=== PATIENT | female | born 1945 | race Caucasian/White ===

== ENCOUNTER 2017-02-25 07:50 | Inpatient (IN) | payer MEDICARE, MEDICAID ==
[2017-02-25] MEDS ORDERED: Fentanyl 100 MCG/2 ML VIAL ONE (08:02)
[2017-02-25] MEDS ORDERED: EPINEPHrine 1 MG/10 ML Abboject SYRINGE ONE (08:02)
[2017-02-25] MEDS ORDERED: Aspirin 300 MG Suppository ONE (08:18)
--- NOTE | 2017-02-25 08:18 | RAD ---
PORTABLE SUPINE FRONTAL CHEST: Date: 02/25/17 COMPARISON: None. HISTORY: Hypotension, lethargy, bundle branch block. FINDINGS: There is air space disease within the right upper lobe with air bronchograms consistent with partial consolidation of right upper lobe. There is also right perihilar region air space disease as well as mild right basilar air space disease. Supine imaging limits assessment for pneumothorax and pleural f luid. Cardiac silhouette is prominent. Postsurgical clips are present in the left upper quadrant of t he abdomen. IMPRESSION: Air space disease within the right lung, including consolidation of right upper lobe centrally sugges laura infectious pneumonitis or aspiration. POS: [facility]
[2017-02-25 08:29] LABS: #Lymphocytes 0.6 thou/uL (1.20-3.40); #Monocytes 0.4 thou/uL (0.11-0.59); #Neutrophils 4.2 thou/uL (1.40-6.50); %Basophils 0.2 % (0.0-1.0); %Eosinophils 0.8 % (0.0-10.0); %Lymphocytes 11.4 % (21.0-51.0); %Monocytes 8.1 % (0.0-10.0); Hematocrit 35.4 % (36.0-47.0); Red Blood Cell (RBC) Count 3.71 mill/uL (4.20-5.40); White Blood Cell (WBC) Count 5.3 thou/uL (4.8-10.8)
[2017-02-25 08:36] LABS: Prothrombin Time 13.9 SEC (12.0-14.7)
--- NOTE | 2017-02-25 08:39 | CON ---
DATE OF CONSULTATION: 02/25/2017 HISTORY: Ms. Lowe is a 71-year-old white female who does not have any previous cardiac problems, although later she stated she has had heart caths in the past. She felt poorly yesterday and this morning apparently had rigors. She has had some chest discomfort and states that she hurts all over. Upon taking a deep breath, her chest pain becomes much worse. She also has had shortness of breath and nausea, but no vomiting. Here EKG demonstrated left bundle branch block and I was consulted. An old EKG that was available, which shows same left bundle branch block previously. PAST MEDICAL HISTORY: Hypertension. No history of diabetes or hypercholesterolemia. She does have history of panic attacks. She had a heart cath 4 years ago and no significant disease according to patient (in [place], [place]). MEDICATIONS: Unknown at this time. ALLERGIES: None. OPERATION: Abdominal herniorrhaphy. SOCIAL HISTORY: She does not smoke or drink. FAMILY HISTORY: Sister has had myocardial infarctions. REVIEW OF SYSTEMS: Twelve point review of systems is unremarkable except as noted above. PHYSICAL EXAMINATION: VITAL SIGNS: Blood pressure 98/40, pulse of 80. She has received intravenous fluids due to hypotension en route. HEENT: PERRL. NECK: Supple. CHEST: Reveals rhonchi greater on the right. CARDIOVASCULAR: S1 and S2 were distant without any S3, S4 or murmurs. ABDOMEN: Obese, normal bowel sounds. Some epigastric tenderness. EXTREMITIES: Revealed no clubbing, cyanosis or edema. NEUROLOGIC: Grossly intact except the patient is somewhat lethargic. SKIN: Warm and dry. IMAGING: EKG demonstrates normal sinus rhythm with left bundle branch block, similar to previous EKG. Blood work is pending. Chest x-ray reveals right upper lobe infiltrate. IMPRESSION: 1. Probable right upper lobe pneumonia causing shortness of breath, pleuritic chest pain, and rigors. 2. Left bundle branch block, which appears to be old. Heart caths in the past with no significant disease according to the patient. 3. Hypertension. 4. Obesity. 5. History of panic attacks. 6. Obstructive sleep apnea. PLAN: Blood work has been sent, but it is not available at this time. She will need serial cardiac enzymes; however, I do not feel that she needs to go to [facility] acutely at this time. [facility]
[2017-02-25] MEDS ORDERED: cefTRIAXone\\ROCEPHIN 2 GM, Admixture Fee 1 EACH in Sodium Chloride 0.9% 100 ML IVPB SCH (08:45)
[2017-02-25 08:51] LABS: ALT (SGPT) 15 U/L (8-55); AST (SGOT) 18 U/L (5-34); Alkaline Phosphatase 66 U/L (40-150); Anion Gap 8 mmol/L (10-20); BUN (Urea Nitrogen) 14 mg/dL (9.8-20.1); Bilirubin, Total 1.2 mg/dL (0.2-1.2); Calc. Creatinine Clearance 0 mL/min (70-130); Calcium 8.2 mg/dL (7.8-10.44); Carbon Dioxide 23 mmol/L (23-31); Chloride 106 mmol/L (98-107); Estimated GFR-MDRD 74; Globulin 1.9 g/dL (2.4-3.5); Lipase 5 U/L (8-78); Magnesium 1.1 mg/dL (1.6-2.6); Protein, Total 4.7 g/dL (6.0-8.3)
[2017-02-25 08:54] LABS: Bilirubin Negative (Negative); Blood, Urine Negative (Negative); Glucose, Urine (Dipstick) Negative (Negative); Ketone, Urine Negative (Negative); Nitrite Negative (Negative); Protein, Urine (Dipstick) Negative (Neg-Trace)
[2017-02-25 08:56] LABS: Troponin I 0.066 ng/mL (< 0.028)
[2017-02-25] MEDS ORDERED: Azithromycin 500 MG, Admixture Fee 1 EACH in Sodium Chloride 0.9% 250 ML 250 ML IVPB SCH (09:15)
[2017-02-25] MEDS ORDERED: Acetaminophen 500 MG TAB ONE (10:18)
--- NOTE | 2017-02-25 10:46 | RAD ---
PORTABLE SEMIUPRIGHT FRONTAL CHEST RADIOGRAPH: DATE: 02/25/17. TIME: 9:39 a.m. COMPARISON: 02/25/17 at 7:25 a.m. HISTORY: Evaluate chest following central line placement. FINDINGS: There is dense airspace disease in the right upper lobe and right perihilar region. There is interst itial prominence in bilateral perihilar regions as well. There is a right-sided vascular catheter, di stal tip overlying the right atrium. IMPRESSION: Pulmonary vascular congestion and perihilar interstitial prominence with dense airspace disease in th e right upper lobe. Findings suggest infectious pneumonitis/aspiration within the right upper lobe. Superimposed pulmonary edema cannot be excluded. Followup to resolution advised. POS: [facility]
[2017-02-25] MEDS ORDERED: Norepinephrine 8 MG/0.9% NS 0 ML ONE (10:52)
--- NOTE | 2017-02-25 11:15 | CT ---
CONTRAST ENHANCED CTA CHEST: HISTORY: Elevated D-dimer. Sore throat. Cough. Recent fever. TECHNIQUE: 2D and 3D reconstructed images were performed on an independent 3D work station. FINDINGS: Numerous surgical clips are seen in the gastroesophageal junction region and in the left upper quadra nt of the abdomen. Atherosclerotic calcification is seen in the thoracic aorta and stents and calcification are seen in the coronary arteries. Right upper lobe and the bilateral lower lobe air space opacity is seen, compatible with bilateral pn eumonia. No evidence of filling defects seen in the pulmonary arteries to suggest pulmonary emboli. IMPRESSION: Extensive bilateral lower lobe opacities and right upper lobe opacities, compatible with multilobar p neumonia. POS: [facility]
--- NOTE | 2017-02-25 12:06 | HP ---
PRIMARY CARE PHYSICIAN: Anastasiia Nova M.D. REASON FOR ADMISSION: Sepsis, bilateral pneumonia, and hypotension. HISTORY OF PRESENT ILLNESS: A 71-year-old female who presented to the emergency room with a complain t of cough, fever, shortness of breath, and generalized weakness. This patient was having high grade fever last night. The patient was also feeling chills with fever and rigor. Her temperature was about 101 and above as per patient's . Patient was given Tyle nol and anxiety medicine around 4 a.m., but patient continued to feel feverish and chills. After a w hile when patient's noticed her, she was becoming more slow, lethargic and not responding liliana ropriately and that is why he called paramedics. When paramedics came to her home, at that time they checked blood pressure, it was 80/50. They did EKG and patient was found with LBBB. Subsequently, patient was brought to the emergency room for evaluation. In the emergency room, they were worried about new LBBB and that is why Cardiology was consulted, but when we obtained old EKG, it was consistent with old LBBB. Patient was hypotensive after 3 liters o f fluid and that is why she required central line placement. She was hypoxic in the emergency room w ith saturation 85% on room air and 92% with nasal cannula. She was having low grade fever. Her bloo d pressure was improving. She did not require any vasopressor in the emergency room. The patient reports that for about 1 month, she was having cough and allergy symptoms, but last night , her symptoms gotten more worse. She did not have any UTI symptoms. She denies any pleuritic chest pain, but she does have cough productive of yellowish green sputum with tinge amount of blood. She denies any palpitations or syncope. She denies any constipation or diarrhea. She denies any recent sick exposures, recent hospitalization or any antibiotic exposure. In the emergency room, patient was given Rocephin, azithromycin, and 3 liters of IV fluid and subsequ ently she is going to be admitted in [facility]. REVIEW OF SYSTEMS: The following complete review of systems was negative, unless otherwise mentioned in the HPI or below: Constitutional: Weight loss or gain, ability to conduct usual activities. Skin: Rash, itching. Eyes: Double vision, pain. ENT/Mouth: Nose bleeding, neck stiffness, pain, tenderness. Cardiovascular: Palpitations, dyspnea on exertion, orthopnea. Respiratory: Shortness of breath, wheezing, cough, hemoptysis, fever or night sweats. Gastrointestinal: Poor appetite, abdominal pain, heartburn, nausea, vomiting, constipation, or diarr hea. Genitourinary: Urgency, frequency, dysuria, nocturia. Musculoskeletal: Pain, swelling. Neurologic/Psychiatric: Anxiety, depression. Allergy/Immunologic: Skin rash, bleeding tendency. Please see my HPI for pertinent positive and negative. All other review of system reviewed and negat rivas except as mentioned in the HPI. PAST MEDICAL HISTORY: Hypertension, history of zoster, chronic low back pain, osteoporosis, and oste oarthritis. PAST SURGICAL HISTORY: Patient had several hernia repair, gastric sleeve surgery, tubal ligation, an d cholecystectomy. PAST PSYCHIATRIC HISTORY: Anxiety and depression. SOCIAL HISTORY: Patient is and lives at home with the family. No history of tobacco, alcoho l or illicit drug abuse. She is not working. FAMILY HISTORY: One sister diagnosed with coronary artery disease, but no strong family history of c ancer or CVA. EMERGENCY ROOM COURSE: The patient is given Rocephin 2 grams, azithromycin 500 mg, 2 liters of IV fl uid, aspirin 300 mg rectally, fentanyl 25 mcg and IV fluid. ALLERGIES: No known drug allergies. CURRENT HOME MEDICATIONS: Prozac 40 mg p.o. daily, trazodone 150 mg p.o. at bedtime, folic acid 1 mg p.o. daily, sulindac 150 mg twice daily, Xanax 0.5 mg twice daily, hydrochlorothiazide 25 mg p.o. da sandor, Flexeril 5 mg twice daily, clonidine 0.1 mg p.o. b.i.d., acyclovir 400 mg twice daily, Contrave one tablet twice daily, vitamin D3 1000 units p.o. daily, multivitamin 1 tablet p.o. daily, Forteo in jection as needed as directed. PHYSICAL EXAMINATION: VITAL SIGNS: Lowest blood pressure was 80/40 at the scene and subsequently in the emergency room, [facility] blood pressure is 88/54, pulse 94, respiratory rate 22, temperature 98.4, saturation 85% on room air and 94% on 2 liter oxygen, weight 69 kilograms. GENERAL: Patient is currently alert, awake, appears weak, lethargic, slowly responsive. HEAD: Normocephalic, atraumatic. EYES: Pupils round, reactive to light. Extraocular muscle intact. ENT: Oropharynx within normal limits. Moist mucous membranes. No oral lesions. No pharyngeal eryt julius, no exudate. NECK: Supple, no JVD, no thyromegaly, no carotid bruit, no meningeal signs of irritation. LUNGS: Bibasilar rales as well as coarse breath sounds, predominantly on the right side. No wheezin g. No accessory muscles of respiration in use. CARDIAC: S1, S2 regular, tachycardia, no murmur elicited, no gallop, no rub. ABDOMEN: Soft, bowel sounds present, nontender, nondistended. No organomegaly, no mass, no suprapub ic tenderness. BACK: Examination unremarkable, no CVA tenderness. EXTREMITIES: Upper extremity passive movements of all joints are normal. Lower extremities: No karla ma. Good peripheral pulsation. SKIN: No skin rash. HEMATOLOGICAL SYSTEM: No lymphadenopathy. PSYCHIATRIC: Normal affect. IMAGING AND SIGNIFICANT LABORATORY DATA: 1. EKG showing LBBB which is old. Chest x-ray showing pulmonary vascular congestion, cardiomegaly, right-sided infiltration. 2. CT angio based on my review, no evidence of pulmonary embolism, but showing right upper lobe and bibasilar infiltration. 3. CBC: WBC 5.3, hemoglobin 11.2, platelet 218 with left shift. INR 1.1. D-dimer 2.91. 4. BMP: Sodium 134, potassium 3.2, chloride 106, carbon dioxide 23, anion gap 8, BUN 14, creatinine 0.77, glucose 105, calcium 8.2, lactic acid 2.0, magnesium 1.1. 5. LFT: AST 18, ALT 15, alkaline phosphatase 66, albumin 2.8, lipase 5, CK-MB 0.8, troponin I 0.066 , BNP 168.7. Urinalysis normal. ASSESSMENT AND PLAN/IMPRESSION: 1. Sepsis with acute organ dysfunction. The patient has fever at home. Source of infection is pneu monia. She is tachycardic and hypoxic. The patient will be kept on broad spectrum antibiotic therap y with Rocephin and Levaquin. 2. Acute hypoxic respiratory failure. When she arrived to ER, patient was saturating 85% on room ai r, most likely related with pneumonia. We will continue with oxygen to keep saturation above 92%. W e are hoping that with the treatment of pneumonia, she may not need oxygen upon discharge. We will d sergioy titrate her oxygen requirement. 3. Bilateral pneumonia. Patient has bibasilar as well as right upper lobe infiltration and we will check influenzae, urine legionella, and streptococcal pneumoniae antigen test. We will start Rocephi n 2 gram and Levaquin 750 mg IV daily. We will provide DuoNeb q.6 hourly, Solu-Medrol 40 mg IV q.8 h ourly, and Mucinex 600 mg twice daily. Pulmonary group will be consulted in IMCU. 4. Elevated troponin, likely due to demand ischemia. We will do serial cardiac enzymes x3 and rule out acute coronary syndrome. 5. Left bundle branch block, old, already evaluated by Cardiology in the emergency room and based on old EKG, patient has old left bundle branch block. We will obtain echocardiography and will continu e with aspirin 81 mg p.o. daily. 6. Elevated BNP. As patient also has pulmonary vascular congestion on chest x-ray, we will do echoc ardiography to rule out any congestive heart failure. 7. Abnormal electrolytes. The patient has hyponatremia, hypokalemia, and hypomagnesemia. We will r eplace potassium 40 mEq p.o. and magnesium sulfate 24 grams one time dose. 8. Elevated D-dimer. We ruled out pulmonary embolism with CT angiography. 9. Hypotension. We will hold on blood pressure medication. At this point, patient's blood pressure is improving. We will check random cortisol level as patient also has underlying congestion, we gavi l try to avoid fluids to prevent congestion. If needed, we will also consider vasopressor support. 10. Anxiety and depression. We will continue Xanax 0.5 mg b.i.d., Prozac 40 mg p.o. daily and trazo done 150 mg p.o. at bedtime. 11. Chronic low back pain. Continue Flexeril 5 mg 3 times daily p.r.n. 12. Osteoporosis. Patient will resume Forteo injection after discharge. 13. Anemia, normocytic, normochromic. We will continue folic acid and multivitamin therapy while in hospital. 14. History of hypertension, but currently low blood pressure and that is why we will hold on antihy pertensive medication. 15. Deep venous thrombosis prophylaxis, Lovenox 40 mg subcutaneously daily. 16. Gastrointestinal prophylaxis, Pepcid 20 mg p.o. b.i.d. 17. Code status: The patient is FULL CODE. Patient's is surrogate decision maker. Disposition plan based on clinical course. We are expecting patient's stay in hospital more than 2 m idnights. Plan of care discussed with the patient and her at bedside in the emergency room i n detail.
[2017-02-25 12:55] LABS: Troponin I 0.057 ng/mL (< 0.028)
[2017-02-25 13:08] VITALS: BMI 30.4
[2017-02-25] MEDS ORDERED: Acetaminophen 325 MG TAB PO PRN ×2 (13:33→13:34)
[2017-02-25] MEDS ORDERED: Ondansetron ODT 4 MG TAB SL PRN (13:33)
[2017-02-25] MEDS ORDERED: Ondansetron HCl/PF 4 MG/2 ML Vial IVP PRN ×2 (13:33→13:34)
[2017-02-25] MEDS ORDERED: Milk Of Magnesia 30 ML UDCUP PO PRN (13:34)
[2017-02-25] MEDS ORDERED: Diabetic Tussin 200 MG/10 ML UDCUP PO PRN (13:34)
[2017-02-25] MEDS ORDERED: Sodium Chloride 0.65% Nasal 44 ML BOT EA NARE PRN (13:34)
[2017-02-25] MEDS ORDERED: Loperamide HCl 2 MG CAP PO PRN (13:34)
[2017-02-25] MEDS ORDERED: Eucerin (Mineral Oil/Petrolatum,White) 30 gm Jar TOP PRN (13:34)
[2017-02-25] MEDS ORDERED: Artificial Tears 18 DROP/0.9 ML EA EYE PRN (13:34)
[2017-02-25] MEDS ORDERED: Chloraseptic Spray 180 ml Bottle PO PRN (13:34)
[2017-02-25] MEDS ORDERED: Mag-Al 1200 mg/1200 mg/30 ML UDCUP PO PRN (13:34)
[2017-02-25] MEDS ORDERED: Senokot 8.6 MG TAB PO PRN (13:34)
[2017-02-25] MEDS ORDERED: Ondansetron ODT 4 MG TAB PO PRN (13:34)
[2017-02-25] MEDS ORDERED: Magnesium Sulfate 4 GM in Sodium Chloride 0.9% 250 ML 250 ML IVPB SCH (14:00)
[2017-02-25] MEDS ORDERED: Potassium Chloride 20 MEQ TAB PO SCH (14:00)
[2017-02-25] MEDS: Sodium Chloride 0.9% 1,000 ML IV SCH (14:08)
[2017-02-25] MEDS: HYDROcodone/Acetaminophen 5/325 mg Tablet PO PRN ×2 (14:36→21:05)
[2017-02-25 14:38] LABS: LegU Control Bar Appear? YES (CONTROL BAR); LegionellaU Control Bkground? CLEAR/WHITE (CLR/WHITE); Strp pneuU Control Background? CLEAR/WHITE (CLR/WHITE); Strp pneumo Control Bar Appear YES (CONTROL BAR)
[2017-02-25] MEDS: Levofloxacin 500 mg/D5W 750 MG in Premix Bag 1 BAG IVPB SCH (14:39)
[2017-02-25 15:16] LABS: Troponin I 0.039 ng/mL (< 0.028)
[2017-02-25] MEDS: ALPRAZolam 0.5 MG TAB PO PRN (16:15)
[2017-02-25] MEDS: Ketorolac Tromethamine 30 MG/ML VIAL IVP PRN (18:14)
[2017-02-25] MEDS ORDERED: Famotidine 20 MG TAB PO SCH (21:00)
[2017-02-25] MEDS: guaiFENesin ER 600 MG TAB PO SCH (21:06)
[2017-02-25] MEDS: traZODone HCl 150 MG TAB PO PRN (21:08)
[2017-02-26 05:01] LABS: #Basophils 0.1 thou/uL (0.0-0.2); #Lymphocytes 0.3 thou/uL (1.20-3.40); #Monocytes 0.2 thou/uL (0.11-0.59); #Neutrophils 13.6 thou/uL (1.40-6.50); %Basophils 0.4 % (0.0-1.0); %Eosinophils 0.1 % (0.0-10.0); %Lymphocytes 2.1 % (21.0-51.0); %Monocytes 1.2 % (0.0-10.0); Hematocrit 32.7 % (36.0-47.0); Mean Platelet Volume 5.9 fL (7.4-10.4); Red Blood Cell (RBC) Count 3.43 mill/uL (4.20-5.40); White Blood Cell (WBC) Count 14.2 thou/uL (4.8-10.8)
[2017-02-26 05:21] LABS: ALT (SGPT) 16 U/L (8-55); AST (SGOT) 15 U/L (5-34); Alkaline Phosphatase 71 U/L (40-150); Anion Gap 9 mmol/L (10-20); BUN (Urea Nitrogen) 11 mg/dL (9.8-20.1); Bilirubin, Total 0.4 mg/dL (0.2-1.2); Calc. Creatinine Clearance 94 mL/min (70-130); Calcium 8.3 mg/dL (7.8-10.44); Carbon Dioxide 23 mmol/L (23-31); Chloride 106 mmol/L (98-107); Cholesterol 88 mg/dl (< 200 Desired); Estimated GFR-MDRD Greater than 90; Globulin 2.3 g/dL (2.4-3.5); LDL Cholesterol, Calculated 32 mg/dL; Magnesium 2.3 mg/dL (1.6-2.6); Phosphorus 2.7 mg/dL (2.3-4.7); Protein, Total 5.4 g/dL (6.0-8.3)
[2017-02-26] MEDS: guaiFENesin ER 600 MG TAB PO SCH ×2 (08:18→20:04)
[2017-02-26] MEDS: FLUoxetine HCl 20 MG CAP PO SCH (08:18)
[2017-02-26] MEDS: Saccharomyces boulardii 250 MG CAP PO SCH (08:18)
[2017-02-26] MEDS: predniSONE 20 MG TAB PO SCH (08:18)
[2017-02-26] MEDS: Folic Acid 1 MG TAB PO SCH (08:19)
[2017-02-26] MEDS: Multivitamin W/ Minerals 1 TAB PO SCH (08:19)
[2017-02-26] MEDS: Enoxaparin Sodium 40 MG/0.4 ML SYRINGE SC SCH (08:20)
[2017-02-26] MEDS: cefTRIAXone\\ROCEPHIN 2 GM in Sodium Chloride 0.9% 100 ML IVPB SCH (10:02)
[2017-02-26] MEDS: Ketorolac Tromethamine 30 MG/ML VIAL IVP PRN ×2 (10:13→20:08)
--- NOTE | 2017-02-26 12:16 | PDOC.PN ---
- Subjective Encounter Start Date: 02/26/17 Encounter Start Time: 08:00 -: old records requested/rev c/o headache, but overall doing well, has no fever, has cough, bedside Patient seen and examined. No overnight events - Objective Resuscitation Status: Resuscitation Status FULL:Full Resuscitation MAR Reviewed: Yes Vital Signs & Weight: Vital Signs (12 hours) Temp Pulse Resp BP Pulse Ox 02/26/17 12:11 102 H 18 96 02/26/17 09:55 99.4 F 101 H 20 130/60 91 L 02/26/17 08:00 99.4 F 106 H 18 97 02/26/17 07:59 88 19 98 02/26/17 03:00 98.8 F Weight Weight 156 lb 1.396 oz Most Recent Monitor Data Heart Rate from ECG 106 NIBP 132/57 NIBP BP-Mean 88 Respiration from ECG 26 SpO2 96 I&O: 02/25/17 02/26/17 02/27/17 06:59 06:59 06:59 Intake Total 1048 300 Output Total 2875 375 Balance -1827 -75 Result Diagrams: 02/26/17 04:00 02/26/17 04:00 Phys Exam - Physical Examination Constitutional: NAD HEENT: PERRLA, moist MMs, sclera anicteric Neck: no JVD, supple Respiratory: no wheezing, no rhonchi right side rales Cardiovascular: RRR, no significant murmur, no rub Gastrointestinal: soft, non-tender, no distention, positive bowel sounds Musculoskeletal: no edema, pulses present Neurological: non-focal, normal sensation, moves all 4 limbs Lymphatic: no nodes Psychiatric: normal affect, A&O x 3 Skin: no rash, normal turgor Dx/Plan (1) Abnormal blood electrolyte level Code(s): E87.8 - OTH DISORDERS OF ELECTROLYTE AND FLUID BALANCE, NEC Status: Acute (2) Acute respiratory failure with hypoxia Code(s): J96.01 - ACUTE RESPIRATORY FAILURE WITH HYPOXIA Status: Acute (3) Community acquired bacterial pneumonia Code(s): J15.9 - UNSPECIFIED BACTERIAL PNEUMONIA Status: Acute (4) Demand ischemia Code(s): I24.8 - OTHER FORMS OF ACUTE ISCHEMIC HEART DISEASE Status: Acute (5) Sepsis with acute organ dysfunction Code(s): A41.9 - SEPSIS, UNSPECIFIED ORGANISM; R65.20 - SEVERE SEPSIS WITHOUT SEPTIC SHOCK Status: Acute (6) Anemia, normocytic normochromic Code(s): D64.9 - ANEMIA, UNSPECIFIED Status: Chronic (7) Anxiety and depression Code(s): F41.8 - OTHER SPECIFIED ANXIETY DISORDERS Status: Chronic (8) CAD (coronary artery disease) Code(s): I25.10 - ATHSCL HEART DISEASE OF [place] CORONARY ARTERY W/O ANG PCTRS Status: Chronic (9) LBBB (left bundle branch block) Code(s): I44.7 - LEFT BUNDLE-BRANCH BLOCK, UNSPECIFIED Status: Chronic (10) Obesity (BMI 30.0-34.9) Code(s): E66.9 - OBESITY, UNSPECIFIED Status: Chronic (11) Osteoarthritis Code(s): M19.90 - UNSPECIFIED OSTEOARTHRITIS, UNSPECIFIED SITE Status: Chronic (12) Osteoporosis Code(s): M81.0 - AGE-RELATED OSTEOPOROSIS W/O CURRENT PATHOLOGICAL FRACTURE Status: Chronic - Plan cont current plan of care, plan discussed w/ family, continue antibiotics, PT/OT , respiratory therapy * continue rocephin and levaquin * transfer to tele * change solumedrol to pO prednisone * medication reviewed as below * symptomatic treatment. * follow culture * start PT * discussed with * continue selected home meds * control headache with toradol Review of Systems - Review of Systems Constitutional: Weakness, Malaise. negative: Fever, Chills, Sweats, Other ENT: negative: Ear Pain, Ear Discharge, Nose Pain, Nose Discharge, Nose Congestion, Mouth Pain, Mouth Swelling, Throat Pain, Throat Swelling, Other Respiratory: Cough, Shortness of Breath. negative: Dry, Hemoptysis, SOB with Excertion, Pleuritic Pain, Sputum, Wheezing Cardiovascular: negative: Chest Pain, Palpitations, Orthopnea, Paroxysmal Noc. Dyspnea, Edema, Light Headedness, Other Gastrointestinal: negative: Nausea, Vomiting, Abdominal Pain, Diarrhea, Constipation, Melena, Hematochezia, Other Genitourinary: negative: Dysuria, Frequency, Incontinence, Hematuria, Retention , Other Musculoskeletal: negative: Neck Pain, Shoulder Pain, Arm Pain, Back Pain, Hand Pain, Leg Pain, Foot Pain, Other Skin: negative: Rash, Lesions, Ra, Bruising, Other - Medications/Allergies Allergies/Adverse Reactions: Allergies Allergy/AdvReac Type Severity Reaction Status Date / Time No Known Allergies Allergy Unverified 02/25/17 08:33 Medications: Current Medications Acetaminophen (Tylenol) 650 mg PO Q4H PRN PRN Reason: Headache/Fever or Pain Hydrocodone Bitart/Acetaminophen ([place] 5/325) 1 tab PO Q4H PRN PRN Reason: Moderate Pain (4-6) Last Admin: 02/25/17 21:05 Dose: 1 tab Al Hydroxide/Mg Hydroxide (Maalox) 30 ml PO Q6H PRN PRN Reason: Heartburn or Indigestion Albuterol/Ipratropium (Duoneb) 3 ml NEB [id number] [facility] Last Admin: 02/26/17 12:11 Dose: 3 ml Alprazolam (Xanax) 0.5 mg PO BIDPRN PRN PRN Reason: Anxiety Last Admin: 02/25/17 16:15 Dose: 0.5 mg Aspirin (Aspirin Chewable) 81 mg PO DAILY [facility] Last Admin: 02/26/17 08:18 Dose: 81 mg Cholecalciferol (Vitamin D3) 1,000 units PO DAILY [facility] Last Admin: 02/26/17 08:18 Dose: 1,000 units Cyclobenzaprine HCl (Flexeril) 5 mg PO TID PRN PRN Reason: Muscle Spasm Enoxaparin Sodium (Lovenox) 40 mg SC 0900 [facility] Last Admin: 02/26/17 08:20 Dose: 40 mg Fluoxetine HCl (Prozac) 40 mg PO DAILY [facility] Last Admin: 02/26/17 08:18 Dose: 40 mg Folic Acid (Folvite) 1 mg PO DAILY [facility] Last Admin: 02/26/17 08:19 Dose: 1 mg Guaifenesin (Mucinex) 600 mg PO Q12HR [facility] Last Admin: 02/26/17 08:18 Dose: 600 mg Sodium Chloride (Normal Saline 0.9%) 1,000 mls @ 0 mls/hr IV .Q0M [facility] PRN Reason: KVO Last Admin: 02/25/17 14:08 Dose: 1,000 mls Ceftriaxone Sodium 2 gm/ (Sodium Chloride) 100 mls @ 200 mls/hr IVPB DAILY [facility] Last Admin: 02/26/17 10:02 Dose: 100 mls Levofloxacin 750 mg/ Device 150 mls @ 100 mls/hr IVPB 1400 [facility] Last Admin: 02/25/17 14:39 Dose: 150 mls Iron/Minerals/Multivitamins (Theragran M) 1 tab PO DAILY [facility] Last Admin: 02/26/17 08:19 Dose: 1 tab Ketorolac Tromethamine (Toradol) 15 mg IVP Q6H PRN PRN Reason: Moderate Pain (4-6) Stop: 03/02/17 18:07 Last Admin: 02/26/17 10:13 Dose: 15 mg Loperamide HCl (Imodium) 2 mg PO PRN PRN PRN Reason: Diarrhea/Loose Stools Loratadine (Claritin) 10 mg PO DAILYPRN PRN PRN Reason: Sinus Symptoms Magnesium Hydroxide (Milk Of Magnesium) 30 ml PO DAILYPRN PRN PRN Reason: Constipation Mineral Oil/White Petrolatum (Eucerin Cream) 0 gm TOP BIDPRN PRN PRN Reason: Dry Skin Ondansetron HCl (Zofran Odt) 4 mg PO Q6H PRN PRN Reason: Nausea/Vomiting Ondansetron HCl (Zofran) 4 mg IVP Q6H PRN PRN Reason: Nausea/Vomiting Phenol (Chloraseptic [place] 180 Ml Bot) 0 ml PO PRN PRN PRN Reason: Sore Throat Prednisone (Prednisone) 40 mg PO QA-[facility] Stop: 02/28/17 08:01 Last Admin: 02/26/17 08:18 Dose: 40 mg Saccharomyces Boulardii (Florastor) 250 mg PO DAILY [facility] Last Admin: 02/26/17 08:18 Dose: 250 mg Senna (Senokot) 2 tab PO HSPRN PRN PRN Reason: Constipation Sodium Chloride ([place] Nasal [place] 0.65%) 0 ml EA NARE QIDPRN PRN PRN Reason: Nasal Congestion Trazodone HCl (Desyrel) 150 mg PO HS PRN PRN Reason: Insomnia Last Admin: 02/25/17 21:08 Dose: 150 mg Zolpidem Tartrate (Ambien) 5 mg PO HSPRN PRN PRN Reason: Insomnia
--- NOTE | 2017-02-26 12:33 | CON ---
DATE OF SERVICE: 02/26/2017 SERVICE: Pulmonary Medicine. REASON FOR CONSULTATION: Respiratory failure/ICU patient. HISTORY OF PRESENT ILLNESS: The patient is a 71-year-old white female with past medical history sign ificant for chronic back pain who presents to the hospital with fevers, cough, shortness of breath wi th muscle ache, pain, and headache. This has been going on for the better part of 2-1/2 to 3 days. She presented to the Emergency Department. She was discovered to have a temperature of 101. The pat ient started becoming increasingly lethargic, which prompted the patient's to called EMS serv ices. She was brought to the Emergency Department and her blood pressures were only marginal. EKG w as performed demonstrating a left bundle branch block. She was subsequently tucked in the ICU after being initiated on a couple of antibiotics. Since being here, she started to feel much improved. He r headache has resolved, and her myalgia has also improved. Denies any current fevers, chills, nause a, or vomiting. She is tolerating some small amounts of p.o. PAST MEDICAL HISTORY: 1. Hypertension. 2. Osteoporosis. 3. Osteoarthritis. 4. Chronic low back pain. PAST SURGICAL HISTORY: 1. Hernia repair, multiple. 2. Gastric sleeve surgery. 3. Tubal ligation. 4. Cholecystectomy. SOCIAL HISTORY: The patient is and lives at home with her . She has no history of al cohol, tobacco, or illicit drug use. She has no exposure to chemicals, asbestos, or tuberculosis. FAMILY HISTORY: Noncontributory. ALLERGIES: No known drug allergies. MEDICATIONS: List of her inpatient medications were reviewed. Multiple updates were made at this ti pa. REVIEW OF SYSTEMS: General, head, ears, eyes, nose, throat, cardiovascular, respiratory, GI, , mus culoskeletal, neurologic and skin is negative except as mentioned in the HPI. PHYSICAL EXAMINATION: VITAL SIGNS: Afebrile, pulse 83, blood pressure 116/64, respirations 27, saturation 95% on 2 liters nasal cannula. HEENT: Normocephalic, atraumatic. Sclerae are white, conjunctivae pink. Oral mucosa moist without lesions. LUNGS: Excellent air entry. There is a slightly prolonged expiratory phase. Rhonchi are extensive throughout bilateral lung perry. No wheezing or crackles are appreciated. HEART: Normal rate, regular. ABDOMEN: Soft, nontender, nondistended. Bowel sounds are positive. MUSCULOSKELETAL: No cyanosis or clubbing. No pitting in the bilateral lower extremities. NEUROLOGIC: Grossly nonfocal. LABORATORY DATA: WBC 14.2, hemoglobin 10.4, platelets 225,000. INR 1.1. Troponin is stable at 0.05 7, BNP 168. Lactate is negative x1. Cortisol level falls within the normal limits. Potassium 3.2. Basic metabolic profile and liver function studies are otherwise unremarkable. Magnesium 1.1. Urin alysis is unremarkable. Strep and legionella urine antigens are unremarkable. Influenza A and B are negative. IMAGIN. CT of the chest demonstrates multiple areas of consolidated lung including the right upper lobe, and bibasilar dependent regions in the lower lobes. This could be associated with severe aspiration related disease. 2. Echocardiogram demonstrates a normal ejection fraction with a mildly dilated left atrium, and faizan ral regurgitation, and tricuspid regurgitation. ASSESSMENT: 1. Severe sepsis. 2. Community-acquired pneumonia. 3. Non-ST elevation myocardial infarction secondary to demand. 4. Hypokalemia. PLAN: We will continue the patient on community-acquired coverage. At this point, she had stabilize d to the point where safe for her to transition out of the ICU to the regular telemetry floor. [facility] will continue to follow for the time being.
[2017-02-26] MEDS: Sodium Chloride 0.9% 1,000 ML IV SCH (14:10)
[2017-02-26] MEDS: Levofloxacin 500 mg/D5W 750 MG in Premix Bag 1 BAG IVPB SCH ×2 (14:10→16:20)
[2017-02-26] MEDS: Loratadine 10 MG TAB PO PRN (20:22)
[2017-02-26] MEDS: traZODone HCl 150 MG TAB PO PRN (20:22)
[2017-02-26] MEDS: HYDROcodone/Acetaminophen 5/325 mg Tablet PO PRN (22:40)
[2017-02-26] MEDS: Cyclobenzaprine 10 MG TAB PO PRN (22:42)
[2017-02-27] MEDS: Ketorolac Tromethamine 30 MG/ML VIAL IVP PRN ×3 (03:21→19:25)
[2017-02-27] MEDS: Cyclobenzaprine 10 MG TAB PO PRN ×2 (06:39→19:28)
[2017-02-27] MEDS: HYDROcodone/Acetaminophen 5/325 mg Tablet PO PRN ×3 (06:40→21:20)
[2017-02-27 08:15] LABS: #Monocytes 0.2 thou/uL (0.11-0.59); #Neutrophils 14.5 thou/uL (1.40-6.50); %Basophils 0.2 % (0.0-1.0); %Eosinophils 0.1 % (0.0-10.0); %Lymphocytes 6.2 % (21.0-51.0); %Monocytes 1.1 % (0.0-10.0); Mean Platelet Volume 5.7 fL (7.4-10.4); Red Blood Cell (RBC) Count 3.48 mill/uL (4.20-5.40); White Blood Cell (WBC) Count 15.7 thou/uL (4.8-10.8)
[2017-02-27 08:37] LABS: ALT (SGPT) 13 U/L (8-55); AST (SGOT) 11 U/L (5-34); Alkaline Phosphatase 72 U/L (40-150); Anion Gap 9 mmol/L (10-20); BUN (Urea Nitrogen) 10 mg/dL (9.8-20.1); Bilirubin, Total 0.4 mg/dL (0.2-1.2); Calc. Creatinine Clearance 96 mL/min (70-130); Calcium 8.7 mg/dL (7.8-10.44); Carbon Dioxide 24 mmol/L (23-31); Chloride 106 mmol/L (98-107); Estimated GFR-MDRD Greater than 90; Globulin 2.6 g/dL (2.4-3.5); Protein, Total 5.7 g/dL (6.0-8.3)
[2017-02-27] MEDS: ALPRAZolam 0.5 MG TAB PO PRN ×2 (09:24→14:41)
[2017-02-27] MEDS: Folic Acid 1 MG TAB PO SCH (09:25)
[2017-02-27] MEDS: Multivitamin W/ Minerals 1 TAB PO SCH (09:25)
[2017-02-27] MEDS: FLUoxetine HCl 20 MG CAP PO SCH (09:25)
[2017-02-27] MEDS: guaiFENesin ER 600 MG TAB PO SCH ×2 (09:26→19:28)
[2017-02-27] MEDS: predniSONE 20 MG TAB PO SCH (09:26)
[2017-02-27] MEDS: Saccharomyces boulardii 250 MG CAP PO SCH (09:26)
[2017-02-27] MEDS: cefTRIAXone\\ROCEPHIN 2 GM in Sodium Chloride 0.9% 100 ML IVPB SCH (09:27)
[2017-02-27] MEDS: Enoxaparin Sodium 40 MG/0.4 ML SYRINGE SC SCH (09:54)
--- NOTE | 2017-02-27 11:15 | PDOC.PN ---
- Subjective Encounter Start Date: 02/27/17 Encounter Start Time: 08:30 pt is very weak, has hypoxia, has cough, bedside - Objective Resuscitation Status: Resuscitation Status FULL:Full Resuscitation MAR Reviewed: Yes Vital Signs & Weight: Vital Signs (12 hours) Temp Pulse Resp BP Pulse Ox 02/27/17 08:52 84 16 94 L 02/27/17 04:00 98.4 F 84 20 119/58 L 91 L 02/27/17 00:00 98.4 F 85 18 137/71 91 L 02/26/17 23:54 83 16 92 L Weight Weight 156 lb 1.396 oz Most Recent Monitor Data Heart Rate from ECG 106 NIBP 132/57 NIBP BP-Mean 88 Respiration from ECG 26 SpO2 96 I&O: 02/26/17 02/27/17 02/28/17 06:59 06:59 06:59 Intake Total 1048 880 Output Total 6222 3315 Balance -8791 -5116 Result Diagrams: 02/27/17 08:06 02/27/17 08:06 EKG Reviewed by me: Yes Phys Exam - Physical Examination Constitutional: NAD HEENT: PERRLA, moist MMs, sclera anicteric Neck: no JVD, supple Respiratory: no wheezing, no rhonchi few scattered rales Cardiovascular: RRR, no significant murmur, no rub Gastrointestinal: soft, non-tender, no distention, positive bowel sounds Musculoskeletal: no edema, pulses present Neurological: non-focal, normal sensation Lymphatic: no nodes Psychiatric: normal affect, A&O x 3 Skin: no rash, normal turgor Dx/Plan (1) Abnormal blood electrolyte level Code(s): E87.8 - OTH DISORDERS OF ELECTROLYTE AND FLUID BALANCE, NEC Status: Acute (2) Acute respiratory failure with hypoxia Code(s): J96.01 - ACUTE RESPIRATORY FAILURE WITH HYPOXIA Status: Acute (3) Community acquired bacterial pneumonia Code(s): J15.9 - UNSPECIFIED BACTERIAL PNEUMONIA Status: Acute (4) Demand ischemia Code(s): I24.8 - OTHER FORMS OF ACUTE ISCHEMIC HEART DISEASE Status: Acute (5) Sepsis with acute organ dysfunction Code(s): A41.9 - SEPSIS, UNSPECIFIED ORGANISM; R65.20 - SEVERE SEPSIS WITHOUT SEPTIC SHOCK Status: Acute (6) Anemia, normocytic normochromic Code(s): D64.9 - ANEMIA, UNSPECIFIED Status: Chronic (7) Anxiety and depression Code(s): F41.8 - OTHER SPECIFIED ANXIETY DISORDERS Status: Chronic (8) CAD (coronary artery disease) Code(s): I25.10 - ATHSCL HEART DISEASE OF [place] CORONARY ARTERY W/O ANG PCTRS Status: Chronic (9) LBBB (left bundle branch block) Code(s): I44.7 - LEFT BUNDLE-BRANCH BLOCK, UNSPECIFIED Status: Chronic (10) Obesity (BMI 30.0-34.9) Code(s): E66.9 - OBESITY, UNSPECIFIED Status: Chronic (11) Osteoarthritis Code(s): M19.90 - UNSPECIFIED OSTEOARTHRITIS, UNSPECIFIED SITE Status: Chronic (12) Osteoporosis Code(s): M81.0 - AGE-RELATED OSTEOPOROSIS W/O CURRENT PATHOLOGICAL FRACTURE Status: Chronic - Plan cont current plan of care, plan discussed w/ family, continue antibiotics, PT/OT , respiratory therapy * continue rocephin and levaquin * will repeat labs and chest xray * gradually wean off oxygen as tolerated * still not ready for discharge * medication reviewed as below * symptomatic treatment * discussed with . Review of Systems - Review of Systems Constitutional: negative: Fever, Chills, Sweats, Weakness, Malaise, Other ENT: negative: Ear Pain, Ear Discharge, Nose Pain, Nose Discharge, Nose Congestion, Mouth Pain, Mouth Swelling, Throat Pain, Throat Swelling, Other Respiratory: Cough, Shortness of Breath, SOB with Excertion. negative: Dry, Hemoptysis, Pleuritic Pain, Sputum, Wheezing Cardiovascular: negative: Chest Pain, Palpitations, Orthopnea, Paroxysmal Noc. Dyspnea, Edema, Light Headedness, Other Gastrointestinal: negative: Nausea, Vomiting, Abdominal Pain, Diarrhea, Constipation, Melena, Hematochezia, Other Genitourinary: negative: Dysuria, Frequency, Incontinence, Hematuria, Retention , Other Musculoskeletal: negative: Neck Pain, Shoulder Pain, Arm Pain, Back Pain, Hand Pain, Leg Pain, Foot Pain, Other - Medications/Allergies Allergies/Adverse Reactions: Allergies Allergy/AdvReac Type Severity Reaction Status Date / Time No Known Allergies Allergy Unverified 02/25/17 08:33 Medications: Current Medications Acetaminophen (Tylenol) 650 mg PO Q4H PRN PRN Reason: Headache/Fever or Pain Last Admin: 12/05/17 20:04 Dose: 650 mg Hydrocodone Bitart/Acetaminophen ([place] 5/325) 1 tab PO Q4H PRN PRN Reason: Moderate Pain (4-6) Last Admin: 02/27/17 06:40 Dose: 1 tab Al Hydroxide/Mg Hydroxide (Maalox) 30 ml PO Q6H PRN PRN Reason: Heartburn or Indigestion Albuterol/Ipratropium (Duoneb) 3 ml NEB [id number] [facility] Last Admin: 02/27/17 08:52 Dose: 3 ml Alprazolam (Xanax) 0.5 mg PO BIDPRN PRN PRN Reason: Anxiety Last Admin: 02/27/17 09:24 Dose: 0.5 mg Aspirin (Aspirin Chewable) 81 mg PO DAILY [facility] Last Admin: 02/27/17 09:25 Dose: 81 mg Cholecalciferol (Vitamin D3) 1,000 units PO DAILY [facility] Last Admin: 02/27/17 09:26 Dose: 1,000 units Cyclobenzaprine HCl (Flexeril) 5 mg PO TID PRN PRN Reason: Muscle Spasm Last Admin: 02/27/17 06:39 Dose: 5 mg Enoxaparin Sodium (Lovenox) 40 mg SC 0900 [facility] Last Admin: 02/27/17 09:54 Dose: 40 mg Fluoxetine HCl (Prozac) 40 mg PO DAILY [facility] Last Admin: 02/27/17 09:25 Dose: 40 mg Folic Acid (Folvite) 1 mg PO DAILY [facility] Last Admin: 02/27/17 09:25 Dose: 1 mg Guaifenesin (Mucinex) 600 mg PO Q12HR [facility] Last Admin: 02/27/17 09:26 Dose: 600 mg Sodium Chloride (Normal Saline 0.9%) 1,000 mls @ 0 mls/hr IV .Q0M MAURICIO PRN Reason: KVO Last Admin: 02/26/17 14:10 Dose: 1,000 mls Ceftriaxone Sodium 2 gm/ (Sodium Chloride) 100 mls @ 200 mls/hr IVPB DAILY [facility] Last Admin: 02/27/17 09:27 Dose: 100 mls Levofloxacin 750 mg/ Device 150 mls @ 100 mls/hr IVPB 1700 [facility] Last Admin: 02/26/17 16:21 Dose: 150 mls Iron/Minerals/Multivitamins (Theragran M) 1 tab PO DAILY [facility] Last Admin: 02/27/17 09:25 Dose: 1 tab Ketorolac Tromethamine (Toradol) 15 mg IVP Q6H PRN PRN Reason: Moderate Pain (4-6) Stop: 03/02/17 18:07 Last Admin: 02/27/17 09:56 Dose: 15 mg Loperamide HCl (Imodium) 2 mg PO PRN PRN PRN Reason: Diarrhea/Loose Stools Loratadine (Claritin) 10 mg PO DAILYPRN PRN PRN Reason: Sinus Symptoms Last Admin: 02/26/17 20:22 Dose: 10 mg Magnesium Hydroxide (Milk Of Magnesium) 30 ml PO DAILYPRN PRN PRN Reason: Constipation Mineral Oil/White Petrolatum (Eucerin Cream) 0 gm TOP BIDPRN PRN PRN Reason: Dry Skin Ondansetron HCl (Zofran Odt) 4 mg PO Q6H PRN PRN Reason: Nausea/Vomiting Ondansetron HCl (Zofran) 4 mg IVP Q6H PRN PRN Reason: Nausea/Vomiting Phenol (Chloraseptic [place] 180 Ml Bot) 0 ml PO PRN PRN PRN Reason: Sore Throat Prednisone (Prednisone) 40 mg PO QA-[facility] Stop: 02/28/17 08:01 Last Admin: 02/27/17 09:26 Dose: 40 mg Saccharomyces Boulardii (Florastor) 250 mg PO DAILY [facility] Last Admin: 02/27/17 09:26 Dose: 250 mg Senna (Senokot) 2 tab PO HSPRN PRN PRN Reason: Constipation Sodium Chloride ([place] Nasal [place] 0.65%) 0 ml EA NARE QIDPRN PRN PRN Reason: Nasal Congestion Trazodone HCl (Desyrel) 150 mg PO HS PRN PRN Reason: Insomnia Last Admin: 02/26/17 20:22 Dose: 150 mg Zolpidem Tartrate (Ambien) 5 mg PO HSPRN PRN PRN Reason: Insomnia
[2017-02-27] MEDS ORDERED: Sodium Chloride 0.9% 10 ML ONE (19:20)
[2017-02-27] MEDS: Zolpidem Tartrate 5 MG TAB PO PRN (21:22)
--- NOTE | 2017-02-27 21:38 | PRG ---
DATE OF SERVICE: 02/27/2017 SERVICE: Pulmonary Medicine. INTERVAL HISTORY: The patient is doing really quite well from a respiratory standpoint. She has bee n weaned down to 1 liter nasal cannula. She has no complaints of nausea or vomiting. Her cough is c learing. She no longer has productive sputum. PHYSICAL EXAMINATION: VITAL SIGNS: Afebrile with T-max of 99.2, pulse 88, blood pressure 148/70, respirations 18 and satur ation 94% on 1 liter nasal cannula. GENERAL: The patient is awake and alert in no apparent distress. LUNGS: Decent air entry. There is no prolonged expiratory phase. Rhonchi are present, but clear wi th cough. HEART: Normal rate and regular. ABDOMEN: Soft, nontender and nondistended. Bowel sounds are positive. MUSCULOSKELETAL: No cyanosis or clubbing. There is trace pitting in the bilateral lower extremities . NEUROLOGIC: Grossly nonfocal. LABORATORY DATA: WBC 15.7, hemoglobin 10.7 and platelets 237,000. Neutrophil count is dropping to 9 2%. INR 1.1. Basic metabolic profile and liver function studies are essentially unremarkable. Urin alysis is unremarkable. Urine for Strep legionella is negative. Blood cultures x2, urine culture, I nfluenza A and B are negative. ASSESSMENT: 1. Severe sepsis. 2. Community-acquired pneumonia. 3. Non-ST elevation myocardial infarction, secondary to demand. 4. Hypokalemia, resolved. PLAN: We will continue antibiotics, and nebulized medications. The patient will require 7 days of a ntibiotics. Assuming her white blood cell count is coming down and blood cultures remained negative. If she is on room air tomorrow, she will be stable for transition out of the hospital. Pulmonary C ritical Care will continue to follow while she remains in house for the time being.
[2017-02-28] MEDS ORDERED: Sodium Chloride 0.9% 10 ML ONE ×2 (02:34→20:07)
[2017-02-28] MEDS: Ketorolac Tromethamine 30 MG/ML VIAL IVP PRN ×2 (02:37→11:34)
[2017-02-28 06:00] LABS: #Eosinphils 0.1 thou/uL (0.0-0.7); #Lymphocytes 1.1 thou/uL (1.20-3.40); #Monocytes 0.2 thou/uL (0.11-0.59); #Neutrophils 12.2 thou/uL (1.40-6.50); %Eosinophils 0.4 % (0.0-10.0); %Lymphocytes 7.8 % (21.0-51.0); %Monocytes 1.8 % (0.0-10.0); Hematocrit 30.2 % (36.0-47.0); Mean Platelet Volume 5.9 fL (7.4-10.4); Red Blood Cell (RBC) Count 3.17 mill/uL (4.20-5.40); White Blood Cell (WBC) Count 13.5 thou/uL (4.8-10.8)
[2017-02-28 06:22] LABS: Anion Gap 10 mmol/L (10-20); BUN (Urea Nitrogen) 10 mg/dL (9.8-20.1); Calc. Creatinine Clearance 108 mL/min (70-130); Calcium 8.4 mg/dL (7.8-10.44); Carbon Dioxide 22 mmol/L (23-31); Chloride 105 mmol/L (98-107); Estimated GFR-MDRD Greater than 90
--- NOTE | 2017-02-28 09:57 | RAD ---
FRONTAL AND LATERAL IMAGING OF THE CHEST: Date: 02/28/17 COMPARISON: 02/25/17. HISTORY: Re-evaluate pneumonia, respiratory distress. FINDINGS: There is extensive right perihilar and right upper lobe interstitial and alveolar opacity. This opaci ty has slightly improved since the 02/25/17 exam. Stable right-sided vascular catheter. No pneumothorax seen. Extensive postoperative clips and suture lines noted in upper abdomen. There is focal opacity in the medial left lung base which suggests infiltrate or volume loss, not significant ly changed. IMPRESSION: Stable left basilar and right upper lobe pulmonary parenchymal opacity, suggesting multifocal infecti ous pneumonitis. Follow-up to resolution advised. POS: L[facility]
[2017-02-28] MEDS: predniSONE 20 MG TAB PO SCH (10:08)
[2017-02-28] MEDS: FLUoxetine HCl 20 MG CAP PO SCH (10:09)
[2017-02-28] MEDS: guaiFENesin ER 600 MG TAB PO SCH ×2 (10:09→20:08)
[2017-02-28] MEDS: Folic Acid 1 MG TAB PO SCH (10:09)
[2017-02-28] MEDS: Enoxaparin Sodium 40 MG/0.4 ML SYRINGE SC SCH (10:10)
[2017-02-28] MEDS: Saccharomyces boulardii 250 MG CAP PO SCH (10:10)
[2017-02-28] MEDS: Multivitamin W/ Minerals 1 TAB PO SCH (10:10)
[2017-02-28] MEDS: cefTRIAXone\\ROCEPHIN 2 GM in Sodium Chloride 0.9% 100 ML IVPB SCH (10:20)
[2017-02-28] MEDS: HYDROcodone/Acetaminophen 5/325 mg Tablet PO PRN ×2 (10:21→21:35)
[2017-02-28] MEDS: Cyclobenzaprine 10 MG TAB PO PRN ×2 (10:21→20:07)
--- NOTE | 2017-02-28 11:14 | PDOC.PN ---
- Subjective Encounter Start Date: 02/28/17 Encounter Start Time: 08:00 pt still weak, has cough, dyspnea, no fever Patient seen and examined. No overnight events - Objective Resuscitation Status: Resuscitation Status FULL:Full Resuscitation MAR Reviewed: Yes Vital Signs & Weight: Vital Signs (12 hours) Temp Pulse Resp BP Pulse Ox 02/28/17 09:59 98.7 F 96 20 153/82 H 92 L 02/28/17 08:14 110 H 18 02/28/17 04:00 98.8 F 94 16 139/65 93 L 02/28/17 01:21 90 16 94 L 02/28/17 01:20 94 L 02/28/17 00:00 97.9 F 75 24 H 138/65 93 L Weight Weight 156 lb 1.396 oz Most Recent Monitor Data Heart Rate from ECG 106 NIBP 132/57 NIBP BP-Mean 88 Respiration from ECG 26 SpO2 96 I&O: 02/27/17 02/28/17 03/01/17 06:59 06:59 06:59 Intake Total 880 1750 Output Total 2545 6895 Balance -1595 -925 Result Diagrams: 02/28/17 05:16 02/28/17 05:16 Radiology Reviewed by me: Yes (chest xray) EKG Reviewed by me: Yes (nsr) Phys Exam - Physical Examination Constitutional: NAD HEENT: PERRLA, moist MMs, sclera anicteric Neck: no JVD, supple Respiratory: no wheezing, no rhonchi right side and bibasilar rales+ Cardiovascular: RRR, no significant murmur, no rub Gastrointestinal: soft, non-tender, no distention, positive bowel sounds Musculoskeletal: no edema, pulses present Neurological: non-focal, normal sensation Lymphatic: no nodes Psychiatric: normal affect, A&O x 3 Skin: no rash, normal turgor Dx/Plan (1) Abnormal blood electrolyte level Code(s): E87.8 - OTH DISORDERS OF ELECTROLYTE AND FLUID BALANCE, NEC Status: Acute (2) Acute respiratory failure with hypoxia Code(s): J96.01 - ACUTE RESPIRATORY FAILURE WITH HYPOXIA Status: Acute (3) Community acquired bacterial pneumonia Code(s): J15.9 - UNSPECIFIED BACTERIAL PNEUMONIA Status: Acute (4) Demand ischemia Code(s): I24.8 - OTHER FORMS OF ACUTE ISCHEMIC HEART DISEASE Status: Acute (5) Sepsis with acute organ dysfunction Code(s): A41.9 - SEPSIS, UNSPECIFIED ORGANISM; R65.20 - SEVERE SEPSIS WITHOUT SEPTIC SHOCK Status: Acute (6) Anemia, normocytic normochromic Code(s): D64.9 - ANEMIA, UNSPECIFIED Status: Chronic (7) Anxiety and depression Code(s): F41.8 - OTHER SPECIFIED ANXIETY DISORDERS Status: Chronic (8) CAD (coronary artery disease) Code(s): I25.10 - ATHSCL HEART DISEASE OF [place] CORONARY ARTERY W/O ANG PCTRS Status: Chronic (9) LBBB (left bundle branch block) Code(s): I44.7 - LEFT BUNDLE-BRANCH BLOCK, UNSPECIFIED Status: Chronic (10) Obesity (BMI 30.0-34.9) Code(s): E66.9 - OBESITY, UNSPECIFIED Status: Chronic (11) Osteoarthritis Code(s): M19.90 - UNSPECIFIED OSTEOARTHRITIS, UNSPECIFIED SITE Status: Chronic (12) Osteoporosis Code(s): M81.0 - AGE-RELATED OSTEOPOROSIS W/O CURRENT PATHOLOGICAL FRACTURE Status: Chronic - Plan cont current plan of care, plan discussed w/ family, continue antibiotics, PT/OT , respiratory therapy, DVT proph w/lovenox * continue rocephin and levaquin * today will see if she still needs oxygen * medication reviewed as below * symptomatic treatment * continue PT * not ready for discharge * may need rehab?. Review of Systems - Review of Systems Constitutional: Weakness. negative: Fever, Chills, Sweats, Malaise, Other Respiratory: Cough, SOB with Excertion. negative: Dry, Shortness of Breath, Hemoptysis, Pleuritic Pain, Sputum, Wheezing Cardiovascular: negative: Chest Pain, Palpitations, Orthopnea, Paroxysmal Noc. Dyspnea, Edema, Light Headedness, Other Gastrointestinal: negative: Nausea, Vomiting, Abdominal Pain, Diarrhea, Constipation, Melena, Hematochezia, Other Genitourinary: negative: Dysuria, Frequency, Incontinence, Hematuria, Retention , Other Musculoskeletal: negative: Neck Pain, Shoulder Pain, Arm Pain, Back Pain, Hand Pain, Leg Pain, Foot Pain, Other Skin: negative: Rash, Lesions, Ra, Bruising, Other - Medications/Allergies Allergies/Adverse Reactions: Allergies Allergy/AdvReac Type Severity Reaction Status Date / Time No Known Allergies Allergy Unverified 02/25/17 08:33 Medications: Current Medications Acetaminophen (Tylenol) 650 mg PO Q4H PRN PRN Reason: Headache/Fever or Pain Last Admin: 02/26/17 20:04 Dose: 650 mg Hydrocodone Bitart/Acetaminophen ([place] 5/325) 1 tab PO Q4H PRN PRN Reason: Moderate Pain (4-6) Last Admin: 02/28/17 10:21 Dose: 1 tab Al Hydroxide/Mg Hydroxide (Maalox) 30 ml PO Q6H PRN PRN Reason: Heartburn or Indigestion Albuterol/Ipratropium (Duoneb) 3 ml NEB [id number] [facility] Last Admin: 02/28/17 08:14 Dose: 3 ml Alprazolam (Xanax) 0.5 mg PO BIDPRN PRN PRN Reason: Anxiety Last Admin: 02/27/17 14:41 Dose: 0.5 mg Aspirin (Aspirin Chewable) 81 mg PO DAILY [facility] Last Admin: 02/28/17 10:08 Dose: 81 mg Cholecalciferol (Vitamin D3) 1,000 units PO DAILY [facility] Last Admin: 02/28/17 10:09 Dose: 1,000 units Cyclobenzaprine HCl (Flexeril) 5 mg PO TID PRN PRN Reason: Muscle Spasm Last Admin: 02/28/17 10:21 Dose: 5 mg Enoxaparin Sodium (Lovenox) 40 mg SC 0900 [facility] Last Admin: 02/28/17 10:10 Dose: 40 mg Fluoxetine HCl (Prozac) 40 mg PO DAILY [facility] Last Admin: 02/28/17 10:09 Dose: 40 mg Folic Acid (Folvite) 1 mg PO DAILY [facility] Last Admin: 02/28/17 10:09 Dose: 1 mg Guaifenesin (Mucinex) 600 mg PO Q12HR [facility] Last Admin: 02/28/17 10:09 Dose: 600 mg Sodium Chloride (Normal Saline 0.9%) 1,000 mls @ 0 mls/hr IV .Q0M MAURICIO PRN Reason: KVO Last Admin: 02/26/17 14:10 Dose: 1,000 mls Ceftriaxone Sodium 2 gm/ (Sodium Chloride) 100 mls @ 200 mls/hr IVPB DAILY [facility] Last Admin: 02/28/17 10:20 Dose: 100 mls Levofloxacin 750 mg/ Device 150 mls @ 100 mls/hr IVPB 1700 [facility] Last Admin: 02/27/17 17:46 Dose: 150 mls Iron/Minerals/Multivitamins (Theragran M) 1 tab PO DAILY [facility] Last Admin: 02/28/17 10:10 Dose: 1 tab Ketorolac Tromethamine (Toradol) 15 mg IVP Q6H PRN PRN Reason: Moderate Pain (4-6) Stop: 03/02/17 18:07 Last Admin: 02/28/17 02:37 Dose: 15 mg Loperamide HCl (Imodium) 2 mg PO PRN PRN PRN Reason: Diarrhea/Loose Stools Loratadine (Claritin) 10 mg PO DAILYPRN PRN PRN Reason: Sinus Symptoms Last Admin: 02/26/17 20:22 Dose: 10 mg Magnesium Hydroxide (Milk Of Magnesium) 30 ml PO DAILYPRN PRN PRN Reason: Constipation Mineral Oil/White Petrolatum (Eucerin Cream) 0 gm TOP BIDPRN PRN PRN Reason: Dry Skin Ondansetron HCl (Zofran Odt) 4 mg PO Q6H PRN PRN Reason: Nausea/Vomiting Ondansetron HCl (Zofran) 4 mg IVP Q6H PRN PRN Reason: Nausea/Vomiting Phenol (Chloraseptic [place] 180 Ml Bot) 0 ml PO PRN PRN PRN Reason: Sore Throat Saccharomyces Boulardii (Florastor) 250 mg PO DAILY [facility] Last Admin: 02/28/17 10:10 Dose: 250 mg Senna (Senokot) 2 tab PO HSPRN PRN PRN Reason: Constipation Sodium Chloride ([place] Nasal [place] 0.65%) 0 ml EA NARE QIDPRN PRN PRN Reason: Nasal Congestion Trazodone HCl (Desyrel) 150 mg PO HS PRN PRN Reason: Insomnia Last Admin: 02/26/17 20:22 Dose: 150 mg Zolpidem Tartrate (Ambien) 5 mg PO HSPRN PRN PRN Reason: Insomnia Last Admin: 02/27/17 21:22 Dose: 5 mg
[2017-02-28] MEDS: ALPRAZolam 0.5 MG TAB PO PRN (11:34)
--- NOTE | 2017-02-28 13:33 | PRG ---
DATE OF SERVICE: 02/28/2017 SERVICE: Pulmonary Medicine. INTERVAL HISTORY: The patient is doing fine from a respiratory standpoint. She denies any current f rupal or chills. Last night, she slept fairly well. She feels more fresh this morning and has more energy. Otherwise, there has been no interval change to her condition. PHYSICAL EXAMINATION: VITAL SIGNS: Afebrile, pulse 92, blood pressure 159/82, respirations 22 and saturation 94% on 2 lite rs nasal cannula. GENERAL: The patient is awake and alert, in no apparent distress. LUNGS: Decreased air entry. Rhonchi are present. No prolonged expiratory phase or wheezing is appr eciated. HEART: Normal rate and regular. ABDOMEN: Soft, nontender and nondistended. Bowel sounds are positive. MUSCULOSKELETAL: No cyanosis or clubbing. No pitting in the bilateral lower extremities. NEUROLOGIC: Grossly nonfocal. LABORATORY DATA: WBC 13.5, hemoglobin 9.6 and platelets 225,000. INR 1.1. Basic metabolic profile is unremarkable except for a sodium of 133. IMAGING DATA: Chest x-ray demonstrates stable infiltrates suggestive of multifocal infectious proces s. ASSESSMENT: 1. Severe sepsis. 2. Community-acquired pneumonia. 3. Non-ST elevation myocardial infarction secondary to demand. PLAN: We will continue her antibiotics, steroids and nebulized medications. Antibiotics will be dis continued after 7 days. Steroids can be discontinued after a total duration of 5. From a purely res piratory perspective, she is stable for transition out of the hospital provided, she is set up with karl woodard at that location. This can be reevaluated in the outpatient setting. Lezama catheter and IJ wi ll be discontinued today.
[2017-02-28] MEDS: Cefdinir 300 MG CAP PO SCH (20:08)
[2017-02-28] MEDS: Loratadine 10 MG TAB PO PRN (20:08)
[2017-02-28] MEDS: Zolpidem Tartrate 5 MG TAB PO PRN (21:35)
[2017-03-01] MEDS ORDERED: Sodium Chloride 0.9% 10 ML ONE (02:52)
[2017-03-01] MEDS: Ketorolac Tromethamine 30 MG/ML VIAL IVP PRN ×2 (02:55→11:45)
[2017-03-01] MEDS: Cyclobenzaprine 10 MG TAB PO PRN (06:36)
[2017-03-01] MEDS: HYDROcodone/Acetaminophen 5/325 mg Tablet PO PRN (06:37)
[2017-03-01 06:58] LABS: #Eosinphils 0.1 thou/uL (0.0-0.7); #Lymphocytes 1.6 thou/uL (1.20-3.40); #Monocytes 0.4 thou/uL (0.11-0.59); #Neutrophils 7.2 thou/uL (1.40-6.50); %Basophils 0.2 % (0.0-1.0); %Eosinophils 1.6 % (0.0-10.0); %Lymphocytes 16.9 % (21.0-51.0); %Monocytes 3.9 % (0.0-10.0); Hematocrit 31.9 % (36.0-47.0); Mean Platelet Volume 5.6 fL (7.4-10.4); Red Blood Cell (RBC) Count 3.39 mill/uL (4.20-5.40); White Blood Cell (WBC) Count 9.3 thou/uL (4.8-10.8)
[2017-03-01 07:18] LABS: Anion Gap 10 mmol/L (10-20); BUN (Urea Nitrogen) 10 mg/dL (9.8-20.1); Calc. Creatinine Clearance 106 mL/min (70-130); Calcium 8.9 mg/dL (7.8-10.44); Carbon Dioxide 25 mmol/L (23-31); Chloride 101 mmol/L (98-107); Estimated GFR-MDRD Greater than 90
[2017-03-01] MEDS: Enoxaparin Sodium 40 MG/0.4 ML SYRINGE SC SCH (08:46)
[2017-03-01] MEDS: FLUoxetine HCl 20 MG CAP PO SCH (08:46)
[2017-03-01] MEDS: Cefdinir 300 MG CAP PO SCH (08:46)
[2017-03-01] MEDS: Multivitamin W/ Minerals 1 TAB PO SCH (08:47)
[2017-03-01] MEDS: guaiFENesin ER 600 MG TAB PO SCH (08:47)
[2017-03-01] MEDS: Saccharomyces boulardii 250 MG CAP PO SCH (08:47)
[2017-03-01] MEDS: Folic Acid 1 MG TAB PO SCH (08:47)
[2017-03-01] MEDS ORDERED: Cyanocobalamin 1000 MCG/ML VIAL IM SCH (09:30)
--- NOTE | 2017-03-01 09:56 | PDOC.PN ---
- Subjective Encounter Start Date: 03/01/17 Encounter Start Time: 09:00 Patient seen and examined. No new complaints. No overnight events - Objective Resuscitation Status: Resuscitation Status FULL:Full Resuscitation MAR Reviewed: Yes Vital Signs & Weight: Vital Signs (12 hours) Temp Pulse Resp BP Pulse Ox 03/01/17 08:05 97.9 F 89 20 153/83 H 93 L 03/01/17 07:29 89 18 96 03/01/17 04:00 97.7 F 93 20 123/64 92 L 03/01/17 01:07 94 20 94 L 03/01/17 00:51 95 Weight Weight 156 lb 1.396 oz Most Recent Monitor Data Heart Rate from ECG 106 NIBP 132/57 NIBP BP-Mean 88 Respiration from ECG 26 SpO2 96 I&O: 02/28/17 03/01/17 03/02/17 06:59 06:59 06:59 Intake Total 1750 920 Output Total 2675 4000 Balance -925 -8450 Result Diagrams: 03/01/17 06:41 03/01/17 06:41 EKG Reviewed by me: Yes (nsr) Phys Exam - Physical Examination Constitutional: NAD HEENT: PERRLA, moist MMs, sclera anicteric Neck: no JVD, supple Respiratory: no wheezing, no rales, no rhonchi Cardiovascular: RRR, no significant murmur, no rub Gastrointestinal: soft, non-tender, no distention, positive bowel sounds Musculoskeletal: no edema, pulses present Neurological: non-focal, normal sensation Lymphatic: no nodes Psychiatric: normal affect, A&O x 3 Skin: no rash, normal turgor Dx/Plan (1) Abnormal blood electrolyte level Code(s): E87.8 - OTH DISORDERS OF ELECTROLYTE AND FLUID BALANCE, NEC Status: Acute (2) Acute respiratory failure with hypoxia Code(s): J96.01 - ACUTE RESPIRATORY FAILURE WITH HYPOXIA Status: Acute (3) Community acquired bacterial pneumonia Code(s): J15.9 - UNSPECIFIED BACTERIAL PNEUMONIA Status: Acute (4) Demand ischemia Code(s): I24.8 - OTHER FORMS OF ACUTE ISCHEMIC HEART DISEASE Status: Acute (5) Sepsis with acute organ dysfunction Code(s): A41.9 - SEPSIS, UNSPECIFIED ORGANISM; R65.20 - SEVERE SEPSIS WITHOUT SEPTIC SHOCK Status: Acute (6) Anemia, normocytic normochromic Code(s): D64.9 - ANEMIA, UNSPECIFIED Status: Chronic (7) Anxiety and depression Code(s): F41.8 - OTHER SPECIFIED ANXIETY DISORDERS Status: Chronic (8) CAD (coronary artery disease) Code(s): I25.10 - ATHSCL HEART DISEASE OF [place] CORONARY ARTERY W/O ANG PCTRS Status: Chronic (9) LBBB (left bundle branch block) Code(s): I44.7 - LEFT BUNDLE-BRANCH BLOCK, UNSPECIFIED Status: Chronic (10) Obesity (BMI 30.0-34.9) Code(s): E66.9 - OBESITY, UNSPECIFIED Status: Chronic (11) Osteoarthritis Code(s): M19.90 - UNSPECIFIED OSTEOARTHRITIS, UNSPECIFIED SITE Status: Chronic (12) Osteoporosis Code(s): M81.0 - AGE-RELATED OSTEOPOROSIS W/O CURRENT PATHOLOGICAL FRACTURE Status: Chronic - Plan cont current plan of care, plan discussed w/ family, continue antibiotics * medication reviewed as below * symptomatic treatment * see discharge johnny. Review of Systems - Review of Systems ENT: negative: Ear Pain, Ear Discharge, Nose Pain, Nose Discharge, Nose Congestion, Mouth Pain, Mouth Swelling, Throat Pain, Throat Swelling, Other Respiratory: negative: Cough, Dry, Shortness of Breath, Hemoptysis, SOB with Excertion, Pleuritic Pain, Sputum, Wheezing Cardiovascular: negative: Chest Pain, Palpitations, Orthopnea, Paroxysmal Noc. Dyspnea, Edema, Light Headedness, Other Gastrointestinal: negative: Nausea, Vomiting, Abdominal Pain, Diarrhea, Constipation, Melena, Hematochezia, Other Genitourinary: negative: Dysuria, Frequency, Incontinence, Hematuria, Retention , Other Musculoskeletal: negative: Neck Pain, Shoulder Pain, Arm Pain, Back Pain, Hand Pain, Leg Pain, Foot Pain, Other - Medications/Allergies Allergies/Adverse Reactions: Allergies Allergy/AdvReac Type Severity Reaction Status Date / Time No Known Allergies Allergy Unverified 02/25/17 08:33 Medications: Current Medications Acetaminophen (Tylenol) 650 mg PO Q4H PRN PRN Reason: Headache/Fever or Pain Last Admin: 02/26/17 20:04 Dose: 650 mg Hydrocodone Bitart/Acetaminophen ([place] 5/325) 1 tab PO Q4H PRN PRN Reason: Moderate Pain (4-6) Last Admin: 03/01/17 06:37 Dose: 1 tab Al Hydroxide/Mg Hydroxide (Maalox) 30 ml PO Q6H PRN PRN Reason: Heartburn or Indigestion Albuterol/Ipratropium (Duoneb) 3 ml NEB [id number] [facility] Last Admin: 03/01/17 07:29 Dose: 3 ml Alprazolam (Xanax) 0.5 mg PO BIDPRN PRN PRN Reason: Anxiety Last Admin: 02/28/17 11:34 Dose: 0.5 mg Aspirin (Aspirin Chewable) 81 mg PO DAILY [facility] Last Admin: 03/01/17 08:46 Dose: 81 mg Cefdinir (Omnicef) 300 mg PO BID [facility] Last Admin: 03/01/17 08:46 Dose: 300 mg Cholecalciferol (Vitamin D3) 1,000 units PO DAILY [facility] Last Admin: 03/01/17 08:46 Dose: 1,000 units Cyanocobalamin (Vitamin B-12) 1,000 mcg IM 0930 [facility] Stop: 03/01/17 11:30 Cyclobenzaprine HCl (Flexeril) 5 mg PO TID PRN PRN Reason: Muscle Spasm Last Admin: 03/01/17 06:36 Dose: 5 mg Enoxaparin Sodium (Lovenox) 40 mg SC 0900 [facility] Last Admin: 03/01/17 08:46 Dose: 40 mg Fluoxetine HCl (Prozac) 40 mg PO DAILY [facility] Last Admin: 03/01/17 08:46 Dose: 40 mg Folic Acid (Folvite) 1 mg PO DAILY [facility] Last Admin: 03/01/17 08:47 Dose: 1 mg Guaifenesin (Mucinex) 600 mg PO Q12HR [facility] Last Admin: 03/01/17 08:47 Dose: 600 mg Sodium Chloride (Normal Saline 0.9%) 1,000 mls @ 0 mls/hr IV .Q0M [facility] PRN Reason: KVO Last Admin: 02/26/17 14:10 Dose: 1,000 mls Iron/Minerals/Multivitamins (Theragran M) 1 tab PO DAILY [facility] Last Admin: 03/01/17 08:47 Dose: 1 tab Ketorolac Tromethamine (Toradol) 15 mg IVP Q6H PRN PRN Reason: Moderate Pain (4-6) Stop: 12/09/17 18:07 Last Admin: 03/01/17 02:55 Dose: 15 mg Levofloxacin (Levaquin) 750 mg PO 0600 [facility] Stop: 03/04/17 06:01 Last Admin: 03/01/17 06:36 Dose: 750 mg Loperamide HCl (Imodium) 2 mg PO PRN PRN PRN Reason: Diarrhea/Loose Stools Loratadine (Claritin) 10 mg PO DAILYPRN PRN PRN Reason: Sinus Symptoms Last Admin: 02/28/17 20:08 Dose: 10 mg Magnesium Hydroxide (Milk Of Magnesium) 30 ml PO DAILYPRN PRN PRN Reason: Constipation Mineral Oil/White Petrolatum (Eucerin Cream) 0 gm TOP BIDPRN PRN PRN Reason: Dry Skin Ondansetron HCl (Zofran Odt) 4 mg PO Q6H PRN PRN Reason: Nausea/Vomiting Ondansetron HCl (Zofran) 4 mg IVP Q6H PRN PRN Reason: Nausea/Vomiting Phenol (Chloraseptic [place] 180 Ml Bot) 0 ml PO PRN PRN PRN Reason: Sore Throat Saccharomyces Boulardii (Florastor) 250 mg PO DAILY [facility] Last Admin: 03/01/17 08:47 Dose: 250 mg Senna (Senokot) 2 tab PO HSPRN PRN PRN Reason: Constipation Sodium Chloride ([place] Nasal [place] 0.65%) 0 ml EA NARE QIDPRN PRN PRN Reason: Nasal Congestion Trazodone HCl (Desyrel) 150 mg PO HS PRN PRN Reason: Insomnia Last Admin: 02/26/17 20:22 Dose: 150 mg Zolpidem Tartrate (Ambien) 5 mg PO HSPRN PRN PRN Reason: Insomnia Last Admin: 02/28/17 21:35 Dose: 5 mg
--- NOTE | 2017-03-01 11:36 | DIS ---
DATE OF ADMISSION: 02/25/2017 DATE OF DISCHARGE: 03/01/2017 PRIMARY CARE PHYSICIAN: Anastasiia Nova M.D. DISCHARGE DISPOSITION: Home. PRIMARY DISCHARGE DIAGNOSES: 1. Acute respiratory failure with hypoxia, resolved. 2. Community-acquired bacterial pneumonia. 3. Demand ischemia. 4. Sepsis with acute organ dysfunction. 5. Abnormal blood electrolytes corrected. SECONDARY DISCHARGE DIAGNOSES: Normocytic anemia, anxiety, depression, coronary artery disease, chronic left bundle branch block, obesity with body mass index 30, osteoarthritis, osteoporosis. PRIMARY PROCEDURE/OPERATION: None. RADIOLOGICAL INVESTIGATION: Chest x-ray on admission showed airspace disease in right lung. CT angio was negative for pulmonary embolism, but it did show extensive bilateral lower lobe opacity and right upper lobe opacity consistent with multifocal pneumonia. Echocardiography showed normal EF. Repeat chest x- ray showed improvement in pneumonia. SIGNIFICANT LABORATORY DATA: WBC 9.3, hemoglobin 10.2, platelet 272. INR 1.1. D-dimer 2.91, sodium 132, creatinine 0.56. LFT normal. Troponin 0.057. Urinalysis normal. Urine legionella and streptococcal pneumoniae antigen negative. Blood culture and urine culture negative, influenza negative. DISCHARGE MEDICATIONS: Omnicef 300 mg twice daily for 7 days, Levaquin 750 mg p.o. daily for 7 days, Florastor 250 mg p.o. daily for 7 days, Mucinex 600 mg twice daily for 7 days. Continue following medications; Zovirax 400 mg p.o. b.i.d., Xanax 0.5 mg p.o. b.i.d., vitamin C 1000 mg p.o. daily, vitamin D3 1000 units p.o. daily, clonidine 0.1 mg p.o. b.i.d., Flexeril 5 mg p.o. t.i.d., Prozac 40 mg p.o. daily, folic acid 1 mg p.o. daily, hydrochlorothiazide 25 mg p.o. daily, multivitamin 1 tablet p.o. daily, Contrave ER two tablets p.o. b.i.d., sulindac 150 mg p.o. b.i.d., trazodone 150 mg p.o. at bedtime. CONTRAINDICATIONS: None. CODE STATUS: FULL CODE. INPATIENT CONSULTANTS: Dr. Saravia was consulted for LBBB, but he recommended that this is not new LBBB. Dr. Gerber was following as patient was admitted in ICU for pneumonia. TEST RESULTS PENDING ON DISCHARGE: None. ALLERGIES: No known drug allergy. DISCHARGE PLAN: Post hospital, the patient is advised to follow with primary care physician in 1 week. The patient will need repeat chest x-ray upon followup visit to see resolution of pneumonia. HOSPITAL COURSE: A 71-year-old female who was admitted by me on 02/25/2017. Please see my HPI for further details. The patient was having increasing shortness of breath, cough, and high grade fever. She was meeting sepsis criteria. She was hypotensive and she was diagnosed with bilateral pneumonia. Initial EKG showed RBBB and that is why Cardiology was consulted and they recommended that this EKG is not a new LBBB, but when they compared with old EKG , it was similar LBBB. Patient was hypoxic with 85% saturation. She required oxygen to keep saturation above normal. She also had bilateral pneumonia and right upper lobe pneumonia that was contributing to her hypoxic respiratory failure. She was hypotensive that was improved with IV fluids. She did not require any vasopressors. She was admitted in ICU for close monitoring. Next day the patient was transferred to telemetry floor. She also had demand ischemia. The patient was treated with broad spectrum antibiotic therapy with Rocephin and Levaquin while in hospital. Subsequently, this patient was changed to Omnicef and Levaquin p.o. Her blood pressure improved and her oxygen requirement was also resolved. The patient had abnormal electrolytes that were replaced while in hospital. She had D-dimer elevated, but CT angio was negative for pulmonary embolism. On discharge, we are resuming all her previous medication. The patient is given all new medication prescriptions to her pharmacy. By the time of discharge, she was completely stable. The patient is seen and examined at bedside today. Please see my progress note from today for further details. Total time spent on discharge day 31 minutes MTDD
[2017-03-01] MEDS: ALPRAZolam 0.5 MG TAB PO PRN (11:47)
[2017-03-01 16:28] VITALS: BP 159/85; TEMP 99.1
--- NOTE | 2017-03-01 16:35 | PRG ---
DATE OF SERVICE: 03/01/2017 SERVICE: Pulmonary Medicine. INTERVAL HISTORY: The patient is doing really well from a respiratory standpoint. On room air, satu ration 87%. She feels perfectly comfortable. She is much improved compared to presentation. Her st rength is improving day by day and she has been able to ambulate without much assistance. PHYSICAL EXAMINATION: VITAL SIGNS: Afebrile, pulse 80, blood pressure 166/82, respirations 20, and saturation 92% on room air. GENERAL: Patient is awake, alert, in no apparent distress. LUNGS: Decent air entry bilaterally with no prolonged expiratory phase. Rhonchi clear with cough. HEART: Normal rate, regular. ABDOMEN: Soft, nontender, nondistended. Bowel sounds positive. MUSCULOSKELETAL: No cyanosis or clubbing. No pitting in the bilateral lower extremities. NEUROLOGIC: Grossly nonfocal. LABORATORY DATA: WBC 9.3, hemoglobin 10.2, and platelets 272,000. Basic metabolic profile is essent ially unremarkable except for sodium of 132. Influenza, blood culture x2 and urine culture are all n egative to date. ASSESSMENT: 1. Acute hypoxic respiratory failure. 2. Community-acquired pneumonia, multifocal. 3. Non-ST elevation myocardial infarction secondary to demand. PLAN: We will continue nebulized medications, steroids, and antibiotics. Durations were previously noted. I will have her return to clinic in 4-6 weeks in the outpatient setting with a chest x-ray to prove that her infiltrates go away. She will need oxygen in the outpatient setting, which can be di scontinued at a followup appointment. Pulmonary Critical Care will continue to follow. If she remai ns in house, but from my perspective, she is stable for transition out.
== END 2017-03-01 18:15 | disposition home or self-care (01) | DRG 871 ==
LOC: ERS 07:50 → CCU 10:58 → 2NO 02-26 10:00
PROVIDERS: ADMIT Internal Medicine; ATTEND Internal Medicine
PROC: 02H633Z Insertion of Infusion Device into Right Atrium, Percutaneous Approach (ICD-10-PCS; principal; 2017-02-25)
DX: A41.9 Sepsis, unspecified organism (principal); J96.01 Acute respiratory failure with hypoxia; I21.A1 Myocardial infarction type 2; J15.9 Unspecified bacterial pneumonia; E87.1 Hypo-osmolality and hyponatremia; E83.42 Hypomagnesemia; I44.7 Left bundle-branch block, unspecified; I10 Essential (primary) hypertension; M54.5 Low back pain; M81.0 Age-related osteoporosis without current pathological fracture; M19.90 Unspecified osteoarthritis, unspecified site; Z98.84 Bariatric surgery status; F41.9 Anxiety disorder, unspecified; F32.9 Major depressive disorder, single episode, unspecified; Z79.82 Long term (current) use of aspirin; R65.20 Severe sepsis without septic shock; E87.6 Hypokalemia; D64.9 Anemia, unspecified; I25.10 Atherosclerotic heart disease of native coronary artery without angina pectoris; E66.9 Obesity, unspecified; Z68.30 Body mass index [BMI] 30.0-30.9, adult; G47.33 Obstructive sleep apnea (adult) (pediatric)
CPT/HCPCS: 36415; 36556; 51701; 71010; 71020; 71275; 80048; 80053; 80061; 81003; 82533; 82553; 83605; 83690; 83735; 83880; 84100; 84484; 85025; 85379; 85610; 87040; 87086; 87899; 93005; 93306; 94640; 96361; 96365; 96367; 96375; A4216; A4353; G8978-GP-CJ; G8979-GP-CH; G8987-GO-CJ; G8988-GO-CI; J0171; J0456; J0696; J1650; J1885; J1956; J2920; J3010; J3420; J3475; J7050; J7506; J7620

== ENCOUNTER 2017-10-18 12:36 | Inpatient (IN) | payer MEDICARE, MEDICAID ==
[~2017-10-18 12:36] MED LIST: ISOVUE-370 76%-LOCM 1 ML ONE
--- NOTE | 2017-10-18 13:57 | RAD ---
RADIOGRAPH CHEST 1 VIEW: HISTORY: Chest pain and dyspnea FINDINGS: There are no air space densities, pulmonary edema, pneumothorax, or cardiomegaly. The lateral costop hrenic angles are sharp. There is an approximately 3 x 2 cm irregular shaped opacity overlapping the right lower lung zone. This may represent calcification of costochondral cartilage, or pleural plaque . It is difficult to find on prior chest radiographs of 2017 because there were infiltrates in the ri ght lung on those previous studies, but it was probably present previously. IMPRESSION: 1. No acute cardiopulmonary findings. 2. Focal nodular opacity projecting over the right lower lung zone. It is favored to be extrapulmonar y, but follow up is recommended. kavitha POS: LINDSAY
[2017-10-18 14:29] LABS: ALT (SGPT) 19 U/L (8-55); AST (SGOT) 16 U/L (5-34); Albumin 3.6 g/dL (3.4-4.8); Alkaline Phosphatase 90 U/L (40-150); Anion Gap 12 mmol/L (10-20); BUN (Urea Nitrogen) 12 mg/dL (9.8-20.1); Bilirubin, Total 0.5 mg/dL (0.2-1.2); CK (CPK) 40 U/L (29-168); Calc. Creatinine Clearance 0 mL/min (70-130); Carbon Dioxide 24 mmol/L (23-31); Chloride 101 mmol/L (98-107); Estimated GFR-MDRD Greater than 90; Globulin 2.5 g/dL (2.4-3.5); Glucose 66 mg/dL (80-115); Lipase 9 U/L (8-78); Potassium 4.4 mmol/L (3.5-5.1); Protein, Total 6.1 g/dL (6.0-8.3); Sodium 133 mmol/L (136-145)
[2017-10-18 14:31] LABS: #Eosinphils 0.4 thou/uL (0.0-0.7); #Lymphocytes 1.2 thou/uL (1.20-3.40); #Monocytes 0.5 thou/uL (0.11-0.59); #Neutrophils 11.1 thou/uL (1.40-6.50); %Basophils 0.2 % (0.0-1.0); %Eosinophils 3.4 % (0.0-10.0); %Lymphocytes 9.1 % (21.0-51.0); %Monocytes 3.5 % (0.0-10.0); %Neutrophils 83.9 % (42.0-75.0); Hemoglobin 11.4 g/dL (12.0-16.0); Mean Corpuscular HGB CONC 34.3 g/dL (32.0-36.0); Mean Corpuscular Hemoglobin 30.9 pg (27.0-31.0); Mean Corpuscular Volume 90.2 fL (78.0-98.0); Mean Platelet Volume 5.8 fL (7.4-10.4); Platelet Count 259 thou/uL (130-400); RBC Distribution Width 12.8 % (11.5-14.5); Red Blood Cell (RBC) Count 3.68 mill/uL (4.20-5.40); White Blood Cell (WBC) Count 13.2 thou/uL (4.8-10.8)
[2017-10-18 14:51] LABS: CKMB 1.1 ng/mL (0-6.6); Troponin I Less than 0.010 ng/mL (< 0.028)
--- NOTE | 2017-10-18 15:36 | CT ---
CT ANGIOGRAM THORAX WITH IV CONTRAST AND 3D RECONSTRUCTIONS; 10/18/17 HISTORY: Dry cough for one week which is now worsening. Increased dyspnea on exertion. COMPARISON: 02/25/17. No filling defects are seen in the pulmonary arteries to suggest a pulmonary embolus. Vascular calcifications are seen in the coronary arteries as well as involving the thoracic aorta and origin of the great vessels. The thoracic aorta is normal in caliber without evidence of an aortic d issection. The heart is mildly enlarged. While the dense areas of consolidation within the lungs bilaterally on the prior study have resolved, there are patchy parenchymal opacities with small rounded area of consolidation at the posterior rig ht lung base. In addition, there are a few minimal patchy ground glass densities in the right upper l obe. Findings are worrisome for infectious process. Calcified granuloma is again seen at the right lung base. No enlarged lymph nodes are seen. Upper abdomen demonstrates innumerable surgical clips present resulting in significant artifact. Post cholecystectomy changes are noted. Calcified granuloma are seen in the spleen. There are degenerative changes seen in the spine. There is a mild wedge shaped compression fracture of the T12 vertebral body with stable degree of height lo ss compared to prior exam in 2017. IMPRESSION: 1. Bibasilar parenchymal opacities with small area of consolidation at the right lung base in ad dition to ground glass densities in the right upper lobe. Findings are worrisome for infectious proce ss/pneumonia. Followup to complete resolution is recommended. 2. No CT evidence of a pulmonary embolus. 3. Mild cardiomegaly. 4. Postsurgical changes of the upper abdomen. 5. Stable height loss of a compression fracture of T12 vertebral body. POS: LINDSAY
--- NOTE | 2017-10-18 17:36 | HP ---
DATE OF ADMISSION: 10/18/2017 CHIEF COMPLAINT: Shortness of breath. HISTORY OF PRESENT ILLNESS: This is a 72-year-old white female who has a history of bilateral pneumo diane in February last year. She presented to the hospital as she was complaining of some shortness of breath, fever and generalized weakness for the past 1 week and she has a nonproductive cough, but letty hollingsworth has no exposure to any sick people. She denies having any chest pain at this time. She has no jess sea, no vomiting, but she has a persistent cough and shortness of breath. She was on 4 liters of arnaldo al cannula when she came into the hospital, but she was saturating 90%-94%. She has a known history of hypertension, which is well controlled. The patient had a CTA of the chest during this admission, which did not show any evidence of pulmonary embolism, but showed ground glass appearance and pneumo diane. PAST MEDICAL HISTORY: 1. Hypertension. 2. History of zoster. 3. History of chronic low back pain. 4. Osteoporosis. 5. Osteoarthritis. PAST SURGICAL HISTORY: Hernia repair, gastric sleeve surgery, tubal ligation and cholecystectomy. SOCIAL HISTORY: The patient is and lives with her . No history of alcohol. No histo ry of illicit drug use. FAMILY HISTORY: Sister was diagnosed with coronary artery disease, but no strong family history of c ancer or CVA. ALLERGIES: No known drug allergies. HOME MEDICATIONS: 1. Alprazolam 0.5 mg p.o. b.i.d. 2. Ascorbic acid. 3. Clonidine 0.1 mg p.o. b.i.d. 4. Cyclobenzaprine 5 mg p.o. t.i.d. 5. Fluoxetine 40 mg p.o. daily. 6. Folic acid 1 mg p.o. daily. 7. Guaifenesin 600 mg p.o. b.i.d. 8. Hydrochlorothiazide 25 mg p.o. daily. 9. She takes Sulindac 150 mg p.o. b.i.d. 10. Trazodone. REVIEW OF SYSTEMS: All 12 systems are reviewed with the patient thoroughly and found to be negative at this time except the ones described in the HPI. The following complete review of systems was nega tive, unless otherwise mentioned in the HPI or below: Constitutional: Weight loss or gain, sense of well-being, ability to conduct usual activities, exercise tolerance. Skin/Breast: Rash, itching, c hanges in hair growth or loss, nail changes, breast lumps, tenderness, swelling, nipple discharge. E yes: Vision, double vision, tearing, blind spots, pain. ENT/Mouth: Headaches (location, time of on set, duration, precipitating factors), vertigo, lightheadedness, injury. Vision, double vision, tear ing, blind spots, pain, nose bleeding, colds, obstruction, discharge, dental difficulties, gingival b leeding, dentures, neck stiffness, pain, tenderness, masses in thyroid or other areas. Cardiovascula r: Precordial pain, substernal distress, palpitations, syncope, dyspnea on exertion, orthopnea, noct urnal paroxysmal dyspnea, edema, cyanosis, hypertension, heart murmurs, varicosities, phlebitis, jennie dication. Respiratory: Pain, shortness of breath, wheezing, stridor, cough, hemoptysis, fever or ni ght sweats. Gastrointestinal: Poor appetite, dysphagia, indigestion, abdominal pain, heartburn, eru ctation, nausea, vomiting, hematemesis, jaundice, constipation, or diarrhea, abnormal stools (willie-co lored, tarry, bloody, greasy, foul smelling), flatulence, hemorrhoids, recent changes in bowel habits . Genitourinary: Urgency, frequency, dysuria, nocturia, hematuria, polyuria, oliguria, unusual (or change in) color of urine, stones, hesitancy, change in size of stream, dribbling, acute retention or incontinence, libido, potency. Musculoskeletal: Pain, swelling, redness or heat of muscles or join ts, limitation, of motion, muscular weakness, atrophy, cramps. Neurologic/Psychiatric: Convulsions, paralyses, tremor, incoordination, paresthesias, difficulties with memory of speech, sensory or jose r disturbances, or muscular coordination (ataxia, tremor), emotional problems, anxiety, depression, p revious psychiatric care, unusual perceptions, hallucinations. Allergy/Immunologic: Skin rash, anem ia, bleeding tendency, polydipsia, polyuria, intolerance to heat or cold. PHYSICAL EXAMINATION: VITAL SIGNS: Blood pressure was 110/88, heart rate is 18, saturation is 94% on 2 liters. GENERAL: The patient is moderately built and moderately nourished. She does not appear to be in any acute distress at this time. She is alert and oriented x3. HEENT: Atraumatic, normocephalic. PERRLA. Extraocular muscles intact. Oral mucosa pink and moist. CARDIOVASCULAR: S1, S2 normal. No murmurs, rubs or gallops. LUNGS: Bilateral air entry was equal. Wheezing was noted bilaterally and crackles, but no evidence of any acute respiratory distress or no use of accessory muscles of respiration was noted. ABDOMEN: Soft, nontender, no guarding, no rebound tenderness. Bowel sounds normal. MUSCULOSKELETAL: No calf tenderness. No pedal edema. No joint tenderness. No joint swelling. SKIN: No cyanosis or erythema, no rash, no pallor. NEUROLOGIC: Cranial nerve examination II-XII intact. No focal deficits were noted. PSYCHIATRIC: No sign of suicidal ideation. No signs of nellie was noted. LABORATORY DATA: Sodium 133, potassium 4.4, chloride is 101, bicarb is 24, BUN is 12, creatinine 0.6 3. WBC 13.2, hemoglobin 11.4, hematocrit 33.3, platelets are 259,000. IMAGING: A chest CT was done today, which ruled out any evidence of pulmonary embolism, but had a gr ound glass appearance throughout the lung, highly suggestive of infectious process and showed bibasil ar parenchymal opacities with small area of consolidation at the right lung base. ASSESSMENT: 1. Sepsis. 2. Acute hypoxic respiratory failure. 3. Bilateral pneumonia. 4. Hypertension. 5. Acute sinusitis. PLAN: 1. Plan is to closely monitor this patient. We will continue the patient on nasal cannula oxygen an d we will continue with nebulizer treatments, DuoNeb and albuterol nebs. We will continue the Mucine x 600 mg twice a day and we will closely follow up. If the patient's respiratory conditions get wors ened, we will consult Pulmonary at that time. 2. The patient has evidence of sinusitis with headaches. We will start the patient on Nasonex twice a day and closely monitor. 3. The patient has a history of hypertension, well controlled. We will restart the patient's home m edications. 4. DVT prophylaxis. Lovenox 40 mg subcu daily. I spent 75 minutes with this patient.
[2017-10-18] MEDS ORDERED: Sodium Chloride 0.9% 1,000 ML IV SCH (20:00)
[2017-10-18] MEDS ORDERED: Ondansetron ODT 4 MG TAB PO PRN (20:05)
[2017-10-18] MEDS ORDERED: Albuterol Sulfate 2.5 mg/3 ml Neb NEB PRN (20:05)
[2017-10-18 20:40] VITALS: BMI 34.3
[2017-10-18] MEDS ORDERED: NALTREXONE HCL PO SCH (21:00)
[2017-10-18] MEDS ORDERED: Cyclobenzaprine 10 MG TAB PO SCH (21:00)
[2017-10-18] MEDS ORDERED: traZODone HCl 150 MG TAB PO SCH (21:00)
[2017-10-18] MEDS ORDERED: BUPROPION HCL PO SCH (21:00)
[2017-10-18] MEDS: Sodium Chloride 0.9% 1,000 ML IV SCH (21:43)
[2017-10-18] MEDS ORDERED: traZODone HCl 50 MG TAB PO SCH (22:00)
[2017-10-18] MEDS: guaiFENesin ER 600 MG TAB PO SCH (22:27)
[2017-10-18] MEDS: cefTRIAXone\\ROCEPHIN 2 GM in Sodium Chloride 0.9% 100 ML IVPB SCH (22:27)
[2017-10-18] MEDS: ALPRAZolam 0.5 MG TAB PO SCH (22:27)
[2017-10-18] MEDS: cloNIDine 0.1 MG TAB PO SCH (22:31)
[2017-10-19] MEDS: Sodium Chloride 0.9% 1,000 ML IV SCH ×2 (04:57→15:14)
[2017-10-19 05:29] LABS: #Eosinphils 0.3 thou/uL (0.0-0.7); #Lymphocytes 1.2 thou/uL (1.20-3.40); #Monocytes 0.3 thou/uL (0.11-0.59); #Neutrophils 8.2 thou/uL (1.40-6.50); %Basophils 0.1 % (0.0-1.0); %Eosinophils 2.7 % (0.0-10.0); %Lymphocytes 12.4 % (21.0-51.0); %Monocytes 3.3 % (0.0-10.0); %Neutrophils 81.5 % (42.0-75.0); Hemoglobin 10.4 g/dL (12.0-16.0); Mean Corpuscular HGB CONC 33.4 g/dL (32.0-36.0); Mean Corpuscular Hemoglobin 30.4 pg (27.0-31.0); Mean Corpuscular Volume 91.1 fL (78.0-98.0); Mean Platelet Volume 6.1 fL (7.4-10.4); Platelet Count 250 thou/uL (130-400); RBC Distribution Width 12.9 % (11.5-14.5); Red Blood Cell (RBC) Count 3.43 mill/uL (4.20-5.40)
[2017-10-19 05:34] LABS: Anion Gap 10 mmol/L (10-20); BUN (Urea Nitrogen) 8 mg/dL (9.8-20.1); Calc. Creatinine Clearance 114 mL/min (70-130); Calcium 8.6 mg/dL (7.8-10.44); Carbon Dioxide 27 mmol/L (23-31); Chloride 101 mmol/L (98-107); Estimated GFR-MDRD Greater than 90; Glucose 103 mg/dL (80-115); Potassium 4.3 mmol/L (3.5-5.1); Sodium 134 mmol/L (136-145)
[2017-10-19] MEDS: Enoxaparin Sodium 40 MG/0.4 ML SYRINGE SC SCH (07:58)
[2017-10-19] MEDS: FLUoxetine HCl 20 MG CAP PO SCH (07:59)
[2017-10-19] MEDS: Folic Acid 1 MG TAB PO SCH (07:59)
[2017-10-19] MEDS: cloNIDine 0.1 MG TAB PO SCH ×2 (07:59→20:28)
[2017-10-19] MEDS: guaiFENesin ER 600 MG TAB PO SCH ×2 (07:59→20:29)
[2017-10-19] MEDS: ALPRAZolam 0.5 MG TAB PO SCH ×2 (07:59→20:29)
[2017-10-19] MEDS: Multivitamin W/ Minerals 1 TAB PO SCH (07:59)
[2017-10-19] MEDS ORDERED: Hydrochlorothiazide 25 MG TAB PO SCH (09:00)
[2017-10-19] MEDS: HYDROcodone/Acetaminophen 5/325 mg Tablet PO PRN ×2 (10:09→18:55)
--- NOTE | 2017-10-19 20:01 | PDOC.PN ---
- Subjective Encounter Start Date: 10/19/17 Encounter Start Time: 14:00 Patient seen and examined for Resp failure/Pneumonia. No new complaints. No overnight events - Objective Resuscitation Status: Resuscitation Status FULL:Full Resuscitation MAR Reviewed: Yes Vital Signs & Weight: Vital Signs (12 hours) Temp Pulse Resp BP BP Pulse Ox Pulse Ox 10/19/17 19:52 97.8 F 72 20 122/75 95 10/19/17 19:16 80 18 95 10/19/17 17:04 98.6 F 77 20 116/73 94 L 10/19/17 14:54 95 10/19/17 14:28 84 16 96 10/19/17 11:49 98.5 F 70 16 103/65 92 L 10/19/17 10:32 73 16 94 L 10/19/17 08:00 97.9 F 70 20 I&O: 10/18/17 10/19/17 10/20/17 06:59 06:59 06:59 Intake Total 1480 Output Total 1200 Balance 280 Result Diagrams: 10/19/17 04:18 10/19/17 04:18 Radiology Reviewed by me: Yes (CT chest - Pneumonia) Phys Exam - Physical Examination Ill appearing Respiratory: no wheezing Bibasilar rales with rhonchi, Symmetrical, No sig accessory muscle use Cardiovascular: RRR, no rub no heaves/pulsations Gastrointestinal: soft, non-tender, no distention, positive bowel sounds Dx/Plan - Plan respiratory therapy, DVT proph w/SCDs IMPRESSION: -Acute hypoxic Resp failure -Sepsis due to B/L Pneumonia ?Pneumococcal -HTN -HLD -Obesity BMI 34 -Hyponatremia -Chronic Anemia PLAN: Cont IV Ceftriaxone with Levaquin Cont Nebs Q4 AM labs Hold HCTZ Add Miralax Ambulate Cont other meds as below Review of Systems - Review of Systems Respiratory: Cough, SOB with Excertion, Sputum. negative: Dry, Shortness of Breath, Hemoptysis, Pleuritic Pain, Wheezing Cardiovascular: negative: chest pain, palpitations, orthopnea, paroxysmal nocturnal dyspnea, edema, light headedness, other Gastrointestinal: negative: Nausea, Vomiting, Abdominal Pain, Diarrhea, Constipation, Melena, Hematochezia, Other - Medications/Allergies Allergies/Adverse Reactions: Allergies Allergy/AdvReac Type Severity Reaction Status Date / Time No Known Allergies Allergy Verified 10/18/17 20:32 Medications: Current Medications Acetaminophen (Tylenol) 650 mg PO Q4H PRN PRN Reason: Headache/Fever or Pain Hydrocodone Bitart/Acetaminophen ([place] 5/325) 1 tab PO Q4H PRN PRN Reason: Moderate Pain (4-6) Last Admin: 10/19/17 18:55 Dose: 1 tab Albuterol Sulfate (Ventolin) 2.5 mg NEB Q2H PRN PRN Reason: Wheezing Albuterol/Ipratropium (Duoneb) 3 ml NEB [id number] [facility] Last Admin: 10/19/17 19:16 Dose: 3 ml Alprazolam (Xanax) 0.5 mg PO BID [facility] Last Admin: 10/19/17 07:59 Dose: 0.5 mg Clonidine (Catapres) 0.1 mg PO BID [facility] Last Admin: 10/19/17 07:59 Dose: 0.1 mg Enoxaparin Sodium (Lovenox) 40 mg SC 0900 [facility] Last Admin: 10/19/17 07:58 Dose: 40 mg Fluoxetine HCl (Prozac) 40 mg PO DAILY [facility] Last Admin: 10/19/17 07:59 Dose: 40 mg Folic Acid (Folvite) 1 mg PO DAILY [facility] Last Admin: 10/19/17 07:59 Dose: 1 mg Guaifenesin (Mucinex) 600 mg PO Q12HR [facility] Last Admin: 10/19/17 07:59 Dose: 600 mg Guaifenesin/Dextromethorphan (Robitussin Dm) 15 ml PO Q4H PRN PRN Reason: Cough Hydrochlorothiazide (Hydrochlorothiazide) 25 mg PO DAILY [facility] Last Admin: 10/19/17 07:59 Dose: 25 mg Ceftriaxone Sodium 2 gm/ (Sodium Chloride) 100 mls @ 200 mls/hr IVPB Q24HR [facility] Last Admin: 10/18/17 22:27 Dose: 100 mls Levofloxacin 750 mg/ Device 150 mls @ 100 mls/hr IVPB Q24HR [facility] Last Admin: 10/19/17 17:13 Dose: 150 mls Sodium Chloride (Normal Saline 0.9%) 1,000 mls @ 100 mls/hr IV .Q10H [facility] Last Admin: 10/19/17 15:14 Dose: 1,000 mls Iron/Minerals/Multivitamins (Theragran M) 1 tab PO DAILY [facility] Last Admin: 10/19/17 07:59 Dose: 1 tab Ondansetron HCl (Zofran Odt) 4 mg PO Q6H PRN PRN Reason: Nausea/Vomiting Sodium Chloride (Flush - Normal Saline) 10 ml IVF Q12HR [facility] Last Admin: 10/19/17 07:59 Dose: Not Given Sodium Chloride (Flush - Normal Saline) 10 ml IVF PRN PRN PRN Reason: Saline Flush Trazodone HCl (Desyrel) 100 mg PO HS [facility]
[2017-10-19] MEDS ORDERED: Calcium Carbonate 500 MG ChewTAB PO PRN (20:03)
[2017-10-19] MEDS ORDERED: Mag-Al 1200 mg/1200 mg/30 ML UDCUP PO PRN (20:03)
[2017-10-19] MEDS: Famotidine 20 MG TAB PO SCH (20:26)
[2017-10-19] MEDS: traZODone HCl 50 MG TAB PO SCH (20:28)
[2017-10-19] MEDS: Senokot S 8.6-50 MG TAB PO SCH (20:29)
[2017-10-19] MEDS: cefTRIAXone\\ROCEPHIN 2 GM in Sodium Chloride 0.9% 100 ML IVPB SCH (20:30)
[2017-10-19] MEDS ORDERED: guaiFENesin ER 600 MG TAB PO SCH (21:00)
[2017-10-20] MEDS: HYDROcodone/Acetaminophen 5/325 mg Tablet PO PRN ×3 (01:56→17:40)
[2017-10-20] MEDS: Sodium Chloride 0.9% 1,000 ML IV SCH ×3 (01:57→22:21)
[2017-10-20] MEDS: Guaifenesin DM 100-10/5 ML UDCUP PO PRN ×3 (01:57→17:41)
[2017-10-20 06:41] LABS: #Eosinphils 0.3 thou/uL (0.0-0.7); #Lymphocytes 1.2 thou/uL (1.20-3.40); #Monocytes 0.3 thou/uL (0.11-0.59); #Neutrophils 3.9 thou/uL (1.40-6.50); %Basophils 0.5 % (0.0-1.0); %Monocytes 5.4 % (0.0-10.0); %Neutrophils 68.2 % (42.0-75.0); Hemoglobin 10.3 g/dL (12.0-16.0); Mean Corpuscular HGB CONC 32.6 g/dL (32.0-36.0); Mean Corpuscular Hemoglobin 30.1 pg (27.0-31.0); Mean Corpuscular Volume 92.3 fL (78.0-98.0); Platelet Count 248 thou/uL (130-400); Red Blood Cell (RBC) Count 3.41 mill/uL (4.20-5.40); White Blood Cell (WBC) Count 5.7 thou/uL (4.8-10.8)
[2017-10-20 06:54] LABS: Anion Gap 12 mmol/L (10-20); BUN (Urea Nitrogen) 8 mg/dL (9.8-20.1); Calc. Creatinine Clearance 112 mL/min (70-130); Calcium 8.7 mg/dL (7.8-10.44); Carbon Dioxide 26 mmol/L (23-31); Chloride 106 mmol/L (98-107); Estimated GFR-MDRD Greater than 90; Glucose 98 mg/dL (80-115); Potassium 4.5 mmol/L (3.5-5.1); Sodium 139 mmol/L (136-145)
[2017-10-20] MEDS: Acetaminophen 325 MG TAB PO PRN (07:35)
[2017-10-20] MEDS: Polyethylene Glycol 3350 17 GM Packet PO SCH (07:35)
[2017-10-20] MEDS: guaiFENesin ER 600 MG TAB PO SCH ×2 (07:36→20:20)
[2017-10-20] MEDS: Saccharomyces boulardii 250 MG CAP PO SCH (07:36)
[2017-10-20] MEDS: Senokot S 8.6-50 MG TAB PO SCH ×2 (07:36→20:20)
[2017-10-20] MEDS: Multivitamin W/ Minerals 1 TAB PO SCH (07:37)
[2017-10-20] MEDS: Folic Acid 1 MG TAB PO SCH (07:37)
[2017-10-20] MEDS: FLUoxetine HCl 20 MG CAP PO SCH (07:37)
[2017-10-20] MEDS: Famotidine 20 MG TAB PO SCH ×2 (07:37→20:19)
[2017-10-20] MEDS: Enoxaparin Sodium 40 MG/0.4 ML SYRINGE SC SCH (07:38)
[2017-10-20] MEDS: cloNIDine 0.1 MG TAB PO SCH ×2 (07:38→20:19)
[2017-10-20] MEDS: ALPRAZolam 0.5 MG TAB PO SCH ×2 (07:38→20:19)
[2017-10-20] MEDS ORDERED: Folic Acid 1 MG TAB PO SCH (09:00)
[2017-10-20] MEDS: Cyanocobalamin (Vitamin B-12) 1,000 MCG TAB PO SCH (09:21)
[2017-10-20] MEDS: Multivit, Therapeutic 1 TAB PO SCH (09:21)
[2017-10-20 11:05] LABS: Magnesium 1.6 mg/dL (1.6-2.6)
--- NOTE | 2017-10-20 13:52 | PDOC.PN ---
- Subjective Encounter Start Date: 10/20/17 Encounter Start Time: 07:20 Patient seen and examined for Sepsis/Pneumonia. Gen malaise. Didn't sleep well. Dry cough +. SOB on exertion. No overnight events - Objective Resuscitation Status: Resuscitation Status FULL:Full Resuscitation MAR Reviewed: Yes Vital Signs & Weight: Vital Signs (12 hours) Temp Pulse Resp BP Pulse Ox 10/20/17 12:08 72 18 94 L 10/20/17 08:00 98.3 F 72 20 130/60 93 L 10/20/17 06:59 96 10/20/17 06:56 67 18 96 10/20/17 02:58 66 18 96 I&O: 10/19/17 10/20/17 10/21/17 06:59 06:59 06:59 Intake Total 3230 Output Total 1200 Balance 2030 Result Diagrams: 10/20/17 05:29 10/20/17 05:29 Phys Exam - Physical Examination Constitutional: NAD (Anxious) Respiratory: no wheezing Bibasilar rales with rhonchi + Cardiovascular: RRR, no rub Gastrointestinal: soft, non-tender, positive bowel sounds Musculoskeletal: no edema Neurological: moves all 4 limbs Dx/Plan - Plan DVT proph w/SCDs IMPRESSION: -Acute hypoxic Resp failure -Sepsis due to B/L Pneumonia ?Pneumococcal -HTN -HLD -Obesity BMI 34 -Hyponatremia - improving -Chronic Anemia PLAN: Consult ID Dr Hernandez due to recurrent Pneumonia Cont IV Atbx (Ceftriaxone with Levaquin) Cont Nebs Q4 with humidified O2 Cont other meds as below Review of Systems - Review of Systems Constitutional: negative: fever, chills, sweats, weakness, malaise, other Cardiovascular: negative: chest pain, palpitations, orthopnea, paroxysmal nocturnal dyspnea, edema, light headedness, other - Medications/Allergies Allergies/Adverse Reactions: Allergies Allergy/AdvReac Type Severity Reaction Status Date / Time No Known Allergies Allergy Verified 10/18/17 20:32 Medications: Current Medications Acetaminophen (Tylenol) 650 mg PO Q4H PRN PRN Reason: Headache/Fever or Pain Last Admin: 10/20/17 07:35 Dose: 650 mg Hydrocodone Bitart/Acetaminophen ([place] 5/325) 1 tab PO Q4H PRN PRN Reason: Moderate Pain (4-6) Last Admin: 10/20/17 01:56 Dose: 1 tab Al Hydroxide/Mg Hydroxide (Maalox) 30 ml PO Q6H PRN PRN Reason: Heartburn or Indigestion Albuterol Sulfate (Ventolin) 2.5 mg NEB Q2H PRN PRN Reason: Wheezing Albuterol/Ipratropium (Duoneb) 3 ml NEB [id number] [facility] Last Admin: 10/20/17 12:08 Dose: 3 ml Alprazolam (Xanax) 0.5 mg PO BID [facility] Last Admin: 10/20/17 07:38 Dose: 0.5 mg Calcium Carbonate (Tums) 1,000 mg PO Q4H PRN PRN Reason: Heartburn or Indigestion Clonidine (Catapres) 0.1 mg PO BID [facility] Last Admin: 10/20/17 07:38 Dose: 0.1 mg Cyanocobalamin (Vitamin B-12) 1,000 mcg PO DAILY [facility] Last Admin: 10/20/17 09:21 Dose: 1,000 mcg Enoxaparin Sodium (Lovenox) 40 mg SC 0900 [facility] Last Admin: 10/20/17 07:38 Dose: 40 mg Famotidine (Pepcid) 20 mg PO BID [facility] Last Admin: 10/20/17 07:37 Dose: 20 mg Fluoxetine HCl (Prozac) 40 mg PO DAILY [facility] Last Admin: 10/20/17 07:37 Dose: 40 mg Folic Acid (Folvite) 1 mg PO DAILY [facility] Last Admin: 10/20/17 07:37 Dose: 1 mg Guaifenesin (Mucinex) 600 mg PO Q12HR [facility] Last Admin: 10/20/17 07:36 Dose: 600 mg Guaifenesin/Dextromethorphan (Robitussin Dm) 15 ml PO Q4H PRN PRN Reason: Cough Last Admin: 10/20/17 12:19 Dose: 15 ml Hydrochlorothiazide (Hydrochlorothiazide) 25 mg PO DAILY [facility] Last Admin: 10/19/17 07:59 Dose: 25 mg Ceftriaxone Sodium 2 gm/ (Sodium Chloride) 100 mls @ 200 mls/hr IVPB Q24HR [facility] Last Admin: 10/19/17 20:30 Dose: 100 mls Levofloxacin 750 mg/ Device 150 mls @ 100 mls/hr IVPB Q24HR [facility] Last Admin: 10/19/17 17:13 Dose: 150 mls Sodium Chloride (Normal Saline 0.9%) 1,000 mls @ 100 mls/hr IV .Q10H [facility] Last Admin: 10/20/17 10:28 Dose: 1,000 mls Multivitamins (Theragran) 1 tab PO DAILY [facility] Last Admin: 10/20/17 09:21 Dose: 1 tab Ondansetron HCl (Zofran Odt) 4 mg PO Q6H PRN PRN Reason: Nausea/Vomiting Polyethylene Glycol (Miralax) 17 gm PO DAILY [facility] Last Admin: 10/20/17 07:35 Dose: 17 gm Saccharomyces Boulardii (Florastor) 250 mg PO DAILY [facility] Last Admin: 10/20/17 07:36 Dose: 250 mg Senna/Docusate Sodium (Senokot S) 1 tab PO BID [facility] Last Admin: 10/20/17 07:36 Dose: 1 tab Sodium Chloride (Flush - Normal Saline) 10 ml IVF Q12HR [facility] Last Admin: 10/20/17 07:47 Dose: 10 ml Sodium Chloride (Flush - Normal Saline) 10 ml IVF PRN PRN PRN Reason: Saline Flush Trazodone HCl (Desyrel) 100 mg PO HS [facility] Last Admin: 10/19/17 20:28 Dose: 100 mg
[2017-10-20 15:49] LABS: HIV (1/2) Antibody/Antigen Non-Reactive (NonReactive); HIV 1/2 INDEX 0.15 S/CO (<1.00)
--- NOTE | 2017-10-20 20:18 | CON ---
DATE OF CONSULTATION: 10/20/2017 REASON FOR CONSULTATION: Recurrent pneumonia. HISTORY OF PRESENT ILLNESS: A 72-year-old patient who has a history of hypertension, recurrent herpe s zoster, osteoporosis, and asthma and was admitted at the end of last year with chills, fever, odilia rgy. Paramedics measured blood pressure of 80/50. She was brought to the emergency room, she was gi marta IV fluids. Initial O2 sats were 85%. The patient had reported a 1 month history of persistent c ough and "allergic or allergy symptoms. The patient had a CT chest with angiogram which demonstrated extensive bilateral lower lobe opacities and right upper lobe opacities. Consultation with Pulmonar y Medicine, Dr. Gerber was completed. Impression was sepsis, community-acquired pneumonia. She had to be admitted to the ICU, possibility of aspiration was considered. She was treated with broad spe ctrum antimicrobial therapy. Blood cultures remained negative. At that time, non-ST segment elevati on MD was diagnosed, felt to be secondary to demand ischemia. Corticosteroids were also administered . After that, she improved and then over the past 2 weeks, she noticed development of nonproductive cough again and then worsening fever and shortness of breath. No headaches, visual symptoms, no sore throat, no toothache, no back pain, no chest pain or maybe some chest pain in the right anterior lily st area. No hemoptysis. No abdominal pain or diarrhea. No genitourinary symptoms. No joint sympto ms. No skin disorder. Initial findings included BP 110/88. In the emergency room, she remained afe brile. Initial laboratory data here at the hospital this time with white cell count 13.2, hemoglobin 11.4, MCV 90 with 82% neutrophils, eosinophils are 0.4 and sodium 133, creatinine 0.63 and liver pro file normal. BNP 116, albumin 3.6 with globulin 2.5. Previous assays included a celiac disease assa ys which were normal. There was a previous legionella and strep pneumonia antigen negative. The pat ient has been given this time on hydrocodone, albuterol, alprazolam, ceftriaxone, clonidine, enoxapar in, fluoxetine, levofloxacin, saccharomyces trazodone. PAST MEDICAL HISTORY: Asthma, coronary artery disease, hypertension, herpes zoster which she describ es as recurrent episodes of vesicular rash which she takes acyclovir for suppression. This sounds mo re like herpes simplex recurrences rather zoster recurrences, chronic low back pain, osteoporosis, os teoarthritis. PAST SURGICAL HISTORY: Hernia repair, gastric sleeve surgery, tubal ligation, cholecystectomy. SOCIAL HISTORY: , living in [place] for 2 years now. FAMILY HISTORY: Coronary artery disease. ALLERGIES: None. MEDICATIONS: Have been listed above. PHYSICAL EXAMINATION: VITAL SIGNS: T-max 98.2, blood pressure 130/60, pulse 72, respirations 18. SKIN: Normal. No lymphadenopathy. HEENT: Ocular movements are conjugate. Oral cavity normal. Teeth in good shape. NECK: Supple, no jugular vein distention. LUNGS: With scattered inspiratory crackles, more prominent in the right hemithorax. Slight wheezing . HEART: S1, S2, regular rate. No S3, S4. ABDOMEN: Soft, not distended or tender. No ascites. No bladder distention. EXTREMITIES: No joint inflammatory activity noted. Pulses 1+ dorsalis pedis. Plantar responses are flexure. No clonus. NEUROLOGIC: Cognitive function appears to be intact. LABORATORY AND X-RAY FINDINGS: Latest labs, sodium 139, creatinine 0.59. White cell count down to 5 .7, hemoglobin 10.3, platelets 248, normal differential and a repeat CT chest showed no evidence of P E and evidence of bibasilar parenchymal opacities, small area of consolidation, right lung base, grou nd-glass densities, right upper lobe. ASSESSMENT: 1. History of coronary disease, prior gastric sleeve procedure. 1. Recurrent pneumonia with 2 episodes within 6 months. DISCUSSION: Differential diagnosis includes a gastric sleeve associated silent aspiration which is t he more likely scenario here versus immune deficiency, particularly antibody immunodeficiency foreign body is less likely, autoimmune syndromes as well as cryptogenic organizing pneumonia with eosinophi lic pneumonia is another possibility. I believe a gastric sleeve associated silent aspiration is the most likely scenario. We will submit assays for the other possibilities and they are all normal, th en I would think that the sleeve associated aspiration is the more likely issue contributing to the p atient's pneumonia, the management of this is somewhat difficulty, but includes maintaining a proper posture at nights as well as decrease the volume of intake of food prior to recumbent positioning. S ometimes EGD to see if there is any evidence of complications of the sleeve procedure might be indica laura.
[2017-10-20] MEDS: traZODone HCl 50 MG TAB PO SCH (20:20)
[2017-10-20] MEDS: cefTRIAXone\\ROCEPHIN 2 GM in Sodium Chloride 0.9% 100 ML IVPB SCH (23:24)
[2017-10-21] MEDS: Guaifenesin DM 100-10/5 ML UDCUP PO PRN ×3 (00:02→18:40)
[2017-10-21] MEDS: HYDROcodone/Acetaminophen 5/325 mg Tablet PO PRN ×2 (00:03→09:22)
[2017-10-21] MEDS: Acetaminophen 325 MG TAB PO PRN ×3 (03:41→21:40)
[2017-10-21] MEDS: Sodium Chloride 0.9% 1,000 ML IV SCH ×2 (03:44→14:26)
[2017-10-21] MEDS ORDERED: predniSONE 20 MG TAB PO SCH (08:45)
[2017-10-21] MEDS: Polyethylene Glycol 3350 17 GM Packet PO SCH (09:21)
[2017-10-21] MEDS: Saccharomyces boulardii 250 MG CAP PO SCH (09:21)
[2017-10-21] MEDS: cloNIDine 0.1 MG TAB PO SCH ×2 (09:21→21:38)
[2017-10-21] MEDS: FLUoxetine HCl 20 MG CAP PO SCH (09:22)
[2017-10-21] MEDS: Cyanocobalamin (Vitamin B-12) 1,000 MCG TAB PO SCH (09:23)
[2017-10-21] MEDS: guaiFENesin ER 600 MG TAB PO SCH ×2 (09:23→21:35)
[2017-10-21] MEDS: Senokot S 8.6-50 MG TAB PO SCH ×2 (09:23→21:39)
[2017-10-21] MEDS: ALPRAZolam 0.5 MG TAB PO SCH ×2 (09:24→21:35)
[2017-10-21] MEDS: Famotidine 20 MG TAB PO SCH ×2 (09:24→21:36)
[2017-10-21] MEDS: Folic Acid 1 MG TAB PO SCH (09:24)
[2017-10-21] MEDS: Multivit, Therapeutic 1 TAB PO SCH (09:24)
[2017-10-21] MEDS: Enoxaparin Sodium 40 MG/0.4 ML SYRINGE SC SCH (09:32)
[2017-10-21] MEDS: predniSONE 20 MG TAB PO SCH (09:32)
[2017-10-21 12:31] LABS: ANA Symphony (Qualitative) Negative (Negative); dsDNA IgG Antibody Less than 0.5 IU/mL (<10 Negative)
--- NOTE | 2017-10-21 20:04 | PDOC.PN ---
- Subjective Encounter Start Date: 10/21/17 Encounter Start Time: 09:15 Patient seen and examined for Pneumonia. Cough - nonproductive. Feels slightly better. No overnight events - Objective Resuscitation Status: Resuscitation Status FULL:Full Resuscitation MAR Reviewed: Yes Vital Signs & Weight: Vital Signs (12 hours) Pulse Resp BP Pulse Ox Pulse Ox 10/21/17 19:37 94 L 10/21/17 19:36 95 10/21/17 14:01 82 16 96 10/21/17 11:00 95 10/21/17 10:05 69 18 95 10/21/17 09:21 170/69 H I&O: 10/20/17 10/21/17 10/22/17 06:59 06:59 06:59 Intake Total 3230 1550 480 Output Total 1200 Balance 2029 1550 480 Result Diagrams: 10/20/17 05:29 10/20/17 05:29 Phys Exam - Physical Examination Constitutional: NAD Respiratory: no wheezing, no rhonchi Scat wheezing Gastrointestinal: soft, non-tender, positive bowel sounds Musculoskeletal: no edema Dx/Plan - Plan DVT proph w/lovenox, DVT proph w/SCDs IMPRESSION: -Acute hypoxic Resp failure -Sepsis due to B/L Pneumonia ?Pneumococcal -HTN -HLD -Obesity BMI 34.4 -Hyponatremia - improving -Chronic Anemia PLAN: Cont IV Ceftriaxone with Levaquin Cont Nebs Q4 with humidified O2 Cont current meds as below Add low dose Steroids Ambulate Microbiology 10/19/17 15:28 Sputum Respiratory Culture - Final 10/20/17 12:17 Sputum Respiratory Culture - Preliminary 10/18/17 17:35 Venous blood - Left Arm Blood Culture - Preliminary Specimen has been received and culture in progress. No Growth to date. 10/18/17 17:35 Venous blood - Left Arm Blood Culture - Preliminary NO GROWTH AT 48 HOURS 10/18/17 17:30 Venous blood - Right Arm Blood Culture - Preliminary Specimen has been received and culture in progress. No Growth to date. 10/18/17 17:30 Venous blood - Right Arm Blood Culture - Preliminary NO GROWTH AT 48 HOURS Laboratory Tests 10/20/17 10/20/17 10/20/17 14:53 14:53 14:53 IgG Total 716.00 IgA Total 145.00 IgM Total 60.00 ARGENIS Screen Negative ARGENIS IgG Screen Negative Anti-ds DNA IgG Ab Less than 0.5 HIV 1&2 Antigen & Ab Non-Reactive Review of Systems - Review of Systems Cardiovascular: negative: chest pain, palpitations, orthopnea, paroxysmal nocturnal dyspnea, edema, light headedness, other Gastrointestinal: negative: Nausea, Vomiting, Abdominal Pain, Diarrhea, Constipation, Melena, Hematochezia, Other - Medications/Allergies Allergies/Adverse Reactions: Allergies Allergy/AdvReac Type Severity Reaction Status Date / Time No Known Allergies Allergy Verified 10/18/17 20:32 Medications: Current Medications Acetaminophen (Tylenol) 650 mg PO Q4H PRN PRN Reason: Headache/Fever or Pain Last Admin: 10/21/17 14:27 Dose: 650 mg Hydrocodone Bitart/Acetaminophen ([place] 5/325) 1 tab PO Q4H PRN PRN Reason: Moderate Pain (4-6) Last Admin: 10/21/17 09:22 Dose: 1 tab Al Hydroxide/Mg Hydroxide (Maalox) 30 ml PO Q6H PRN PRN Reason: Heartburn or Indigestion Albuterol Sulfate (Ventolin) 2.5 mg NEB Q2H PRN PRN Reason: Wheezing Albuterol/Ipratropium (Duoneb) 3 ml NEB [id number] [facility] Last Admin: 10/21/17 19:36 Dose: 3 ml Alprazolam (Xanax) 0.5 mg PO BID [facility] Last Admin: 10/21/17 09:24 Dose: 0.5 mg Aspirin (Ecotrin) 81 mg PO DAILY [facility] Calcium Carbonate (Tums) 1,000 mg PO Q4H PRN PRN Reason: Heartburn or Indigestion Clonidine (Catapres) 0.1 mg PO BID [facility] Last Admin: 10/21/17 09:21 Dose: 0.1 mg Cyanocobalamin (Vitamin B-12) 1,000 mcg PO DAILY [facility] Last Admin: 10/21/17 09:23 Dose: 1,000 mcg Enoxaparin Sodium (Lovenox) 40 mg SC 0900 [facility] Last Admin: 10/21/17 09:32 Dose: 40 mg Famotidine (Pepcid) 20 mg PO BID [facility] Last Admin: 10/21/17 09:24 Dose: 20 mg Fluoxetine HCl (Prozac) 40 mg PO DAILY [facility] Last Admin: 10/21/17 09:22 Dose: 40 mg Folic Acid (Folvite) 1 mg PO DAILY [facility] Last Admin: 10/21/17 09:24 Dose: 1 mg Guaifenesin (Mucinex) 600 mg PO Q12HR [facility] Last Admin: 10/21/17 09:23 Dose: 600 mg Guaifenesin/Dextromethorphan (Robitussin Dm) 15 ml PO Q4H PRN PRN Reason: Cough Last Admin: 10/21/17 18:40 Dose: 15 ml Hydrochlorothiazide (Hydrochlorothiazide) 25 mg PO DAILY [facility] Last Admin: 10/19/17 07:59 Dose: 25 mg Ceftriaxone Sodium 2 gm/ (Sodium Chloride) 100 mls @ 200 mls/hr IVPB Q24HR [facility] Last Admin: 10/20/17 23:24 Dose: 100 mls Levofloxacin 750 mg/ Device 150 mls @ 100 mls/hr IVPB Q24HR [facility] Last Admin: 10/21/17 16:30 Dose: 150 mls Sodium Chloride (Normal Saline 0.9%) 1,000 mls @ 100 mls/hr IV .Q10H [facility] Last Admin: 10/21/17 14:26 Dose: 1,000 mls Multivitamins (Theragran) 1 tab PO DAILY [facility] Last Admin: 10/21/17 09:24 Dose: 1 tab Ondansetron HCl (Zofran Odt) 4 mg PO Q6H PRN PRN Reason: Nausea/Vomiting Polyethylene Glycol (Miralax) 17 gm PO DAILY [facility] Last Admin: 10/21/17 09:21 Dose: 17 gm Prednisone (Prednisone) 20 mg PO QAM-WM [facility] Last Admin: 10/21/17 09:32 Dose: 20 mg Saccharomyces Boulardii (Florastor) 250 mg PO DAILY [facility] Last Admin: 10/21/17 09:21 Dose: 250 mg Senna/Docusate Sodium (Senokot S) 1 tab PO BID [facility] Last Admin: 10/21/17 09:23 Dose: 1 tab Sodium Chloride (Flush - Normal Saline) 10 ml IVF Q12HR [facility] Last Admin: 10/21/17 09:24 Dose: 10 ml Sodium Chloride (Flush - Normal Saline) 10 ml IVF PRN PRN PRN Reason: Saline Flush Solifenacin (Vesicare) 10 mg PO HS [facility] Tramadol HCl (Ultram) 50 mg PO Q6HR PRN PRN Reason: Pain Trazodone HCl (Desyrel) 100 mg PO HS [facility] Last Admin: 10/20/17 20:20 Dose: 100 mg
[2017-10-21] MEDS: TROSPIUM 20 MG TABLET PO SCH (21:39)
[2017-10-21] MEDS: traZODone HCl 50 MG TAB PO SCH (21:39)
[2017-10-21] MEDS: cefTRIAXone\\ROCEPHIN 2 GM in Sodium Chloride 0.9% 100 ML IVPB SCH (22:30)
[2017-10-22] MEDS: Acetaminophen 325 MG TAB PO PRN (03:25)
[2017-10-22] MEDS: Sodium Chloride 0.9% 1,000 ML IV SCH ×2 (03:25→13:40)
[2017-10-22] MEDS: traMADol HCl 50 MG TAB PO PRN ×3 (04:21→21:15)
[2017-10-22] MEDS: Polyethylene Glycol 3350 17 GM Packet PO SCH (08:54)
[2017-10-22] MEDS: TROSPIUM 20 MG TABLET PO SCH ×2 (08:55→21:15)
[2017-10-22] MEDS: Aspirin 81 mg Enteric Coated Tablet PO SCH (08:55)
[2017-10-22] MEDS: Enoxaparin Sodium 40 MG/0.4 ML SYRINGE SC SCH (08:55)
[2017-10-22] MEDS: FLUoxetine HCl 20 MG CAP PO SCH (08:55)
[2017-10-22] MEDS: predniSONE 20 MG TAB PO SCH (08:55)
[2017-10-22] MEDS: Saccharomyces boulardii 250 MG CAP PO SCH (08:55)
[2017-10-22] MEDS: ALPRAZolam 0.5 MG TAB PO SCH ×2 (08:56→21:16)
[2017-10-22] MEDS: Senokot S 8.6-50 MG TAB PO SCH ×2 (08:56→21:15)
[2017-10-22] MEDS: Folic Acid 1 MG TAB PO SCH (08:56)
[2017-10-22] MEDS: Multivit, Therapeutic 1 TAB PO SCH (08:56)
[2017-10-22] MEDS: guaiFENesin ER 600 MG TAB PO SCH ×2 (08:56→21:16)
[2017-10-22] MEDS: Cyanocobalamin (Vitamin B-12) 1,000 MCG TAB PO SCH (08:56)
[2017-10-22] MEDS: cloNIDine 0.1 MG TAB PO SCH ×2 (08:56→21:15)
[2017-10-22] MEDS: Famotidine 20 MG TAB PO SCH ×2 (08:57→21:16)
[2017-10-22] MEDS: Magnesium Chloride 64 MG TAB PO SCH ×2 (09:06→21:16)
[2017-10-22] MEDS: Guaifenesin DM 100-10/5 ML UDCUP PO PRN ×2 (10:10→21:19)
[2017-10-22] MEDS ORDERED: Ibuprofen 200 MG TAB PO PRN (18:26)
[2017-10-22] MEDS ORDERED: Cyclobenzaprine 10 MG TAB PO PRN (18:26)
[2017-10-22] MEDS ORDERED: cloNIDine 0.1 MG TAB PO PRN (19:32)
--- NOTE | 2017-10-22 19:34 | PDOC.PN ---
- Subjective Encounter Start Date: 10/22/17 Encounter Start Time: 11:30 Patient seen and examined for Pneumonia. Dry cough +. No new complaints. No overnight events - Objective Resuscitation Status: Resuscitation Status FULL:Full Resuscitation MAR Reviewed: Yes Vital Signs & Weight: Vital Signs (12 hours) Temp Pulse Resp BP BP Pulse Ox 10/22/17 14:39 87 16 94 L 10/22/17 11:01 69 20 95 10/22/17 08:56 170/69 H 10/22/17 08:08 97 10/22/17 08:00 98.6 F 83 18 97 10/22/17 07:35 98.6 F 83 18 127/56 L 93 L I&O: 10/21/17 10/22/17 10/23/17 06:59 06:59 06:59 Intake Total 1550 480 720 Balance 1550 480 720 Result Diagrams: 10/20/17 05:29 10/20/17 05:29 Phys Exam - Physical Examination In distress due to persistent coughing Neck: no JVD Respiratory: no wheezing Bibasilar rales with scat rhonchi Cardiovascular: RRR, no rub Gastrointestinal: soft, non-tender, positive bowel sounds Musculoskeletal: no edema Dx/Plan - Plan DVT proph w/SCDs IMPRESSION: -Acute hypoxic Resp failure - improving -Sepsis due to B/L Pneumonia ?Pneumococcal - on Ceftriaxone and Levaquib -HTN - uncontrolled. -HLD -Obesity BMI 34.4 -Hyponatremia - improving -Chronic Anemia PLAN: Cont IV Atbx Reduce Prednisone to 10 mg daily Cont Nebs Q4 Add Clonidine PRN Add low dose Amldodipine Cont current meds as below DC Lovenox - Patient ambulating Ambulate DC IVF Review of Systems - Review of Systems Respiratory: Cough, Dry. negative: Shortness of Breath, Hemoptysis, SOB with Excertion, Pleuritic Pain, Sputum, Wheezing Cardiovascular: negative: chest pain, palpitations, orthopnea, paroxysmal nocturnal dyspnea, edema, light headedness, other - Medications/Allergies Allergies/Adverse Reactions: Allergies Allergy/AdvReac Type Severity Reaction Status Date / Time No Known Allergies Allergy Verified 10/18/17 20:32 Medications: Current Medications Acetaminophen (Tylenol) 650 mg PO Q4H PRN PRN Reason: Headache/Fever or Pain Last Admin: 10/22/17 03:25 Dose: 650 mg Hydrocodone Bitart/Acetaminophen ([place] 5/325) 1 tab PO Q4H PRN PRN Reason: Moderate Pain (4-6) Last Admin: 10/21/17 09:22 Dose: 1 tab Al Hydroxide/Mg Hydroxide (Maalox) 30 ml PO Q6H PRN PRN Reason: Heartburn or Indigestion Albuterol Sulfate (Ventolin) 2.5 mg NEB Q2H PRN PRN Reason: Wheezing Albuterol/Ipratropium (Duoneb) 3 ml NEB [id number] [facility] Last Admin: 10/22/17 14:39 Dose: 3 ml Alprazolam (Xanax) 0.5 mg PO BID [facility] Last Admin: 10/22/17 08:56 Dose: 0.5 mg Aspirin (Ecotrin) 81 mg PO DAILY [facility] Last Admin: 10/22/17 08:55 Dose: 81 mg Calcium Carbonate (Tums) 1,000 mg PO Q4H PRN PRN Reason: Heartburn or Indigestion Clonidine (Catapres) 0.1 mg PO BID [facility] Last Admin: 10/22/17 08:56 Dose: 0.1 mg Clonidine (Catapres) 0.1 mg PO Q4H PRN PRN Reason: Systolic BP > 180 Cyanocobalamin (Vitamin B-12) 1,000 mcg PO DAILY [facility] Last Admin: 10/22/17 08:56 Dose: 1,000 mcg Cyclobenzaprine HCl (Flexeril) 5 mg PO TID PRN PRN Reason: Muscle Spasm Stop: 10/24/17 18:27 Famotidine (Pepcid) 20 mg PO BID [facility] Last Admin: 10/22/17 08:57 Dose: 20 mg Fluoxetine HCl (Prozac) 40 mg PO DAILY [facility] Last Admin: 10/22/17 08:55 Dose: 40 mg Folic Acid (Folvite) 1 mg PO DAILY [facility] Last Admin: 10/22/17 08:56 Dose: 1 mg Guaifenesin (Mucinex) 600 mg PO Q12HR [facility] Last Admin: 10/22/17 08:56 Dose: 600 mg Guaifenesin/Dextromethorphan (Robitussin Dm) 15 ml PO Q4H PRN PRN Reason: Cough Last Admin: 10/22/17 10:10 Dose: 15 ml Ceftriaxone Sodium 2 gm/ (Sodium Chloride) 100 mls @ 200 mls/hr IVPB Q24HR [facility] Last Admin: 10/21/17 22:30 Dose: 100 mls Levofloxacin 750 mg/ Device 150 mls @ 100 mls/hr IVPB Q24HR [facility] Last Admin: 10/22/17 16:20 Dose: 150 mls Ibuprofen (Motrin) 400 mg PO Q6H PRN PRN Reason: Mild-Moderate Pain (1-5) Magnesium Chloride (Slow-Mag) 64 mg PO BID [facility] Last Admin: 10/22/17 09:06 Dose: 64 mg Multivitamins (Theragran) 1 tab PO DAILY [facility] Last Admin: 10/22/17 08:56 Dose: 1 tab Ondansetron HCl (Zofran Odt) 4 mg PO Q6H PRN PRN Reason: Nausea/Vomiting Prednisone (Prednisone) 20 mg PO QAM-WM [facility] Last Admin: 10/22/17 08:55 Dose: 20 mg Saccharomyces Boulardii (Florastor) 250 mg PO DAILY [facility] Last Admin: 10/22/17 08:55 Dose: 250 mg Senna/Docusate Sodium (Senokot S) 1 tab PO BID [facility] Sodium Chloride (Flush - Normal Saline) 10 ml IVF Q12HR [facility] Last Admin: 10/22/17 08:59 Dose: 10 ml Sodium Chloride (Flush - Normal Saline) 10 ml IVF PRN PRN PRN Reason: Saline Flush Tramadol HCl (Ultram) 50 mg PO Q6H PRN PRN Reason: Mild-Moderate Pain (1-5) Last Admin: 10/22/17 15:28 Dose: 50 mg Trazodone HCl (Desyrel) 100 mg PO [facility] Last Admin: 10/21/17 21:39 Dose: 100 mg Trospium (Trospium) 20 mg PO BID [facility] Last Admin: 10/22/17 08:55 Dose: 20 mg
[2017-10-22] MEDS ORDERED: Amlodipine 5 MG TAB PO SCH (19:45)
[2017-10-22] MEDS: traZODone HCl 50 MG TAB PO SCH (21:15)
[2017-10-22] MEDS: cefTRIAXone\\ROCEPHIN 2 GM in Sodium Chloride 0.9% 100 ML IVPB SCH (23:35)
[2017-10-23] MEDS: traMADol HCl 50 MG TAB PO PRN ×3 (04:05→16:44)
[2017-10-23] MEDS: Guaifenesin DM 100-10/5 ML UDCUP PO PRN (04:05)
[2017-10-23 04:10] LABS: #Eosinphils 0.3 thou/uL (0.0-0.7); #Lymphocytes 1.9 thou/uL (1.20-3.40); #Monocytes 0.4 thou/uL (0.11-0.59); #Neutrophils 3.9 thou/uL (1.40-6.50); %Basophils 0.5 % (0.0-1.0); %Eosinophils 4.4 % (0.0-10.0); %Lymphocytes 29.5 % (21.0-51.0); %Monocytes 6.8 % (0.0-10.0); %Neutrophils 58.8 % (42.0-75.0); Hemoglobin 10.6 g/dL (12.0-16.0); Mean Corpuscular HGB CONC 34.3 g/dL (32.0-36.0); Mean Corpuscular Hemoglobin 31.1 pg (27.0-31.0); Mean Corpuscular Volume 90.7 fL (78.0-98.0); Mean Platelet Volume 5.6 fL (7.4-10.4); Platelet Count 268 thou/uL (130-400); RBC Distribution Width 12.7 % (11.5-14.5); Red Blood Cell (RBC) Count 3.39 mill/uL (4.20-5.40); White Blood Cell (WBC) Count 6.5 thou/uL (4.8-10.8)
[2017-10-23 04:24] LABS: Anion Gap 13 mmol/L (10-20); BUN (Urea Nitrogen) 7 mg/dL (9.8-20.1); Calc. Creatinine Clearance 112 mL/min (70-130); Calcium 9.3 mg/dL (7.8-10.44); Carbon Dioxide 27 mmol/L (23-31); Chloride 103 mmol/L (98-107); Estimated GFR-MDRD Greater than 90; Glucose 99 mg/dL (80-115); Magnesium 1.5 mg/dL (1.6-2.6); Potassium 4.3 mmol/L (3.5-5.1); Sodium 139 mmol/L (136-145)
[2017-10-23] MEDS ORDERED: Magnesium Sulfate 2 GM in Sodium Chloride 0.9% 100 ML IVPB SCH (06:15)
[2017-10-23 07:34] LABS: Albumin 2.8 g/dL (2.9-4.4); Alpha 1 0.3 g/dL (0.0-0.4); Alpha 2 0.8 g/dL (0.4-1.0); Beta 0.9 g/dL (0.7-1.3); Gamma 0.6 g/dL (0.4-1.8); Globulin, Total 2.7 g/dL (2.2-3.9); M-Spike Not Observed g/dL (Not Observed)
[2017-10-23] MEDS: Magnesium Chloride 64 MG TAB PO SCH ×2 (07:53→19:59)
[2017-10-23] MEDS: Famotidine 20 MG TAB PO SCH ×2 (07:53→19:58)
[2017-10-23] MEDS: Saccharomyces boulardii 250 MG CAP PO SCH (07:54)
[2017-10-23] MEDS: TROSPIUM 20 MG TABLET PO SCH ×2 (07:54→19:58)
[2017-10-23] MEDS: cloNIDine 0.1 MG TAB PO SCH ×2 (07:54→19:58)
[2017-10-23] MEDS: Amlodipine 5 MG TAB PO SCH (07:54)
[2017-10-23] MEDS: Cyanocobalamin (Vitamin B-12) 1,000 MCG TAB PO SCH (07:54)
[2017-10-23] MEDS: predniSONE 20 MG TAB PO SCH (07:55)
[2017-10-23] MEDS: FLUoxetine HCl 20 MG CAP PO SCH (07:55)
[2017-10-23] MEDS: guaiFENesin ER 600 MG TAB PO SCH ×2 (07:55→19:58)
[2017-10-23] MEDS: ALPRAZolam 0.5 MG TAB PO SCH ×2 (07:55→19:58)
[2017-10-23] MEDS: Aspirin 81 mg Enteric Coated Tablet PO SCH (07:55)
[2017-10-23] MEDS: Multivit, Therapeutic 1 TAB PO SCH (07:56)
[2017-10-23] MEDS: Senokot S 8.6-50 MG TAB PO SCH ×2 (07:56→19:59)
[2017-10-23] MEDS: Folic Acid 1 MG TAB PO SCH (07:56)
[2017-10-23] MEDS: Acetaminophen 325 MG TAB PO PRN ×2 (12:30→19:59)
[2017-10-23] MEDS ORDERED: Fluconazole 100 MG TAB PO SCH (13:45)
[2017-10-23 16:18] LABS: Cytoplasmic (C-ANCA) <1:20 titer (Neg:<1:20); Perinuclear (P-ANCA) <1:20 titer (Neg:<1:20)
[2017-10-23] MEDS: traZODone HCl 50 MG TAB PO SCH (19:58)
--- NOTE | 2017-10-23 20:40 | PDOC.PN ---
- Subjective Encounter Start Date: 10/23/17 Encounter Start Time: 12:30 Patient seen and examined for Pneumonia. Nonproductive cough +. No new complaints. No overnight events - Objective Resuscitation Status: Resuscitation Status FULL:Full Resuscitation MAR Reviewed: Yes Vital Signs & Weight: Vital Signs (12 hours) Temp Pulse Resp BP BP Pulse Ox 10/23/17 19:58 147/81 H 10/23/17 19:50 98.4 F 74 18 147/81 H 92 L 10/23/17 18:26 79 20 95 10/23/17 10:40 69 20 91 L I&O: 10/22/17 10/23/17 10/24/17 06:59 06:59 06:59 Intake Total 480 720 840 Balance 480 720 840 Result Diagrams: 10/23/17 03:33 10/23/17 03:33 Phys Exam - Physical Examination Constitutional: NAD Respiratory: no wheezing, no rhonchi Bibasilar rales Cardiovascular: RRR, no rub Gastrointestinal: soft, non-tender, positive bowel sounds Musculoskeletal: no edema Neurological: moves all 4 limbs Dx/Plan - Plan IMPRESSION: -Acute hypoxic Resp failure - improving -Sepsis due to B/L Pneumonia ?Pneumococcal -HTN -HLD -Hypomagnesemia -Obesity BMI 34.4 -Hyponatremia - resolve -Chronic Anemia PLAN: IV 2 gm Magnessium Cont IV Atbx - Ceftriaxone/Levaquin DC Prednisone Cont Nebs Q4 Cont low dose Amldodipine Cont current meds as below DC planning Review of Systems - Review of Systems Constitutional: negative: fever, chills, sweats, weakness, malaise, other Cardiovascular: negative: chest pain, palpitations, orthopnea, paroxysmal nocturnal dyspnea, edema, light headedness, other - Medications/Allergies Allergies/Adverse Reactions: Allergies Allergy/AdvReac Type Severity Reaction Status Date / Time No Known Allergies Allergy Verified 10/18/17 20:32 Medications: Current Medications Acetaminophen (Tylenol) 650 mg PO Q4H PRN PRN Reason: Headache/Fever or Pain Last Admin: 10/23/17 19:59 Dose: 650 mg Hydrocodone Bitart/Acetaminophen ([place] 5/325) 1 tab PO Q4H PRN PRN Reason: Moderate Pain (4-6) Last Admin: 10/21/17 09:22 Dose: 1 tab Al Hydroxide/Mg Hydroxide (Maalox) 30 ml PO Q6H PRN PRN Reason: Heartburn or Indigestion Albuterol Sulfate (Ventolin) 2.5 mg NEB Q2H PRN PRN Reason: Wheezing Albuterol/Ipratropium (Duoneb) 3 ml NEB [id number] [facility] Last Admin: 10/23/17 18:26 Dose: 3 ml Alprazolam (Xanax) 0.5 mg PO BID [facility] Last Admin: 10/23/17 19:58 Dose: 0.5 mg Amlodipine Besylate (Norvasc) 2.5 mg PO DAILY [facility] Last Admin: 10/23/17 07:54 Dose: 2.5 mg Aspirin (Ecotrin) 81 mg PO DAILY [facility] Last Admin: 10/23/17 07:55 Dose: 81 mg Calcium Carbonate (Tums) 1,000 mg PO Q4H PRN PRN Reason: Heartburn or Indigestion Clonidine (Catapres) 0.1 mg PO BID [facility] Last Admin: 10/23/17 19:58 Dose: 0.1 mg Clonidine (Catapres) 0.1 mg PO Q4H PRN PRN Reason: Systolic BP > 180 Cyanocobalamin (Vitamin B-12) 1,000 mcg PO DAILY [facility] Last Admin: 10/23/17 07:54 Dose: 1,000 mcg Cyclobenzaprine HCl (Flexeril) 5 mg PO TID PRN PRN Reason: Muscle Spasm Stop: 10/24/17 18:27 Famotidine (Pepcid) 20 mg PO BID [facility] Last Admin: 10/23/17 19:58 Dose: 20 mg Fluoxetine HCl (Prozac) 40 mg PO DAILY [facility] Last Admin: 10/23/17 07:55 Dose: 40 mg Folic Acid (Folvite) 1 mg PO DAILY [facility] Last Admin: 10/23/17 07:56 Dose: 1 mg Guaifenesin (Mucinex) 600 mg PO Q12HR [facility] Last Admin: 10/23/17 19:58 Dose: 600 mg Guaifenesin/Dextromethorphan (Robitussin Dm) 15 ml PO Q4H PRN PRN Reason: Cough Last Admin: 10/23/17 04:05 Dose: 15 ml Ceftriaxone Sodium 2 gm/ (Sodium Chloride) 100 mls @ 200 mls/hr IVPB Q24HR [facility] Last Admin: 10/22/17 23:35 Dose: 100 mls Levofloxacin 750 mg/ Device 150 mls @ 100 mls/hr IVPB Q24HR [facility] Last Admin: 10/23/17 16:38 Dose: 150 mls Ibuprofen (Motrin) 400 mg PO Q6H PRN PRN Reason: Mild-Moderate Pain (1-5) Magnesium Chloride (Slow-Mag) 64 mg PO BID [facility] Last Admin: 10/23/17 19:59 Dose: 64 mg Multivitamins (Theragran) 1 tab PO DAILY [facility] Last Admin: 10/23/17 07:56 Dose: 1 tab Ondansetron HCl (Zofran Odt) 4 mg PO Q6H PRN PRN Reason: Nausea/Vomiting Prednisone (Prednisone) 10 mg PO QAM-WM [facility] Last Admin: 10/23/17 07:55 Dose: 10 mg Saccharomyces Boulardii (Florastor) 250 mg PO DAILY [facility] Last Admin: 10/23/17 07:54 Dose: 250 mg Senna/Docusate Sodium (Senokot S) 1 tab PO BID [facility] Last Admin: 10/23/17 19:59 Dose: 1 tab Sodium Chloride (Flush - Normal Saline) 10 ml IVF Q12HR [facility] Last Admin: 10/23/17 20:01 Dose: 10 ml Sodium Chloride (Flush - Normal Saline) 10 ml IVF PRN PRN PRN Reason: Saline Flush Tramadol HCl (Ultram) 50 mg PO Q6H PRN PRN Reason: Mild-Moderate Pain (1-5) Last Admin: 10/23/17 16:44 Dose: 50 mg Trazodone HCl (Desyrel) 100 mg PO HS [facility] Last Admin: 10/23/17 19:58 Dose: 100 mg Trospium (Trospium) 20 mg PO BID [facility] Last Admin: 10/23/17 19:58 Dose: 20 mg
[2017-10-23] MEDS: cefTRIAXone\\ROCEPHIN 2 GM in Sodium Chloride 0.9% 100 ML IVPB SCH (20:56)
[2017-10-24] MEDS: Acetaminophen 325 MG TAB PO PRN (04:43)
[2017-10-24 07:52] VITALS: TEMP 98.3
[2017-10-24] MEDS: Magnesium Chloride 64 MG TAB PO SCH (08:09)
[2017-10-24] MEDS: Amlodipine 5 MG TAB PO SCH (08:11)
[2017-10-24] MEDS: Folic Acid 1 MG TAB PO SCH (08:12)
[2017-10-24] MEDS: ALPRAZolam 0.5 MG TAB PO SCH (08:12)
[2017-10-24] MEDS: Famotidine 20 MG TAB PO SCH (08:13)
[2017-10-24] MEDS: Senokot S 8.6-50 MG TAB PO SCH (08:14)
[2017-10-24] MEDS: Saccharomyces boulardii 250 MG CAP PO SCH (08:14)
[2017-10-24] MEDS: Aspirin 81 mg Enteric Coated Tablet PO SCH (08:14)
[2017-10-24] MEDS: TROSPIUM 20 MG TABLET PO SCH (08:14)
[2017-10-24] MEDS: cloNIDine 0.1 MG TAB PO SCH (08:14)
[2017-10-24] MEDS: FLUoxetine HCl 20 MG CAP PO SCH (08:14)
[2017-10-24] MEDS: guaiFENesin ER 600 MG TAB PO SCH (08:15)
[2017-10-24] MEDS: Cyanocobalamin (Vitamin B-12) 1,000 MCG TAB PO SCH (08:15)
[2017-10-24] MEDS: Multivit, Therapeutic 1 TAB PO SCH (08:15)
[2017-10-24 08:16] VITALS: BP 147/81
[2017-10-24] MEDS: predniSONE 20 MG TAB PO SCH (08:25)
--- NOTE | 2017-10-24 16:26 | DIS ---
DATE OF DISCHARGE: 10/24/2017 DISCHARGE DISPOSITION: Home. FOLLOWUP: 1. Follow up with primary care physician, Dr. Nova in 1 week. 2. Repeat chest x-ray after 4 weeks is recommended. Primary care physician advised to follow. DISCHARGE MEDICATIONS: Omnicef 300 mg twice a day for 8 days, Levaquin 750 mg daily for the next 8 d ays, amlodipine 2.5 mg daily. All other home medications were resumed. BRIEF HOSPITAL COURSE: The patient is a 72-year-old female with hypertension and bilateral pneumonia requiring intensive care unit care in 02/2017 presented to the hospital with worsening shortness of breath. She was found to be hypoxic in the emergency room. CT angiogram of the chest showed bilater al pneumonia. Please refer to the history and physical dated 10/18/2017 for further details. The patient was admitted to the hospital with a diagnosis of acute hypoxic respiratory failure second jose juan to bilateral pneumonia with sepsis. She was started on IV ceftriaxone with Levaquin. She showed good, but slow improvement. She also received a very small dose of steroids during the hospital sta y that has been discontinued. Due to recurrent pneumonia, patient was evaluated by Infectious Diseas eDr. Hernandez. Dr. Hernandez ordered ARGENIS panel which was negative. Hemoglobin G, A and M were also negat rivas. HIV testing was negative. Per Dr. 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 She will benefit from a GI evaluation as outpatient. She was advised to maintai n proper posture at night as well as to decrease the volume of intake of food prior to recumbent posi tioning. Blood cultures have been negative. Respiratory viral panel was also negative. WBC on admi ssion was 13.2 with left shift. At discharge, her WBC counts are normal. Serum protein electrophore sis was also negative. She appears stable for discharge. FINAL DIAGNOSES: 1. Acute hypoxic respiratory failure with sepsis secondary to bilateral pneumonia, suspected pneumoc occal versus silent aspiration from gastric sleeve. 2. Hypertension. 3. Hyperlipidemia. 4. Obesity with body mass index of 34. 5. Hyponatremia, resolved. 6. Chronic anemia. 7. Hypomagnesemia, replaced. 8. Osteoporosis. 9. Degenerative joint disease. 10. History of zoster. 11. Chronic low back pain. 12. Depression 13. Overactive bladder. Plan of care was discussed with the patient in detail. She stated understanding.
== END 2017-10-24 11:44 | disposition home or self-care (01) | DRG 871 ==
LOC: ERS 12:36 → ERHOLD 16:03 → T4-A 19:55
PROVIDERS: ADMIT Family Medicine; ATTEND Family Medicine
DX: A41.9 Sepsis, unspecified organism (principal); J96.01 Acute respiratory failure with hypoxia; J18.9 Pneumonia, unspecified organism; I21.A1 Myocardial infarction type 2; E87.1 Hypo-osmolality and hyponatremia; I10 Essential (primary) hypertension; G89.29 Other chronic pain; M54.5 Low back pain; M81.0 Age-related osteoporosis without current pathological fracture; M19.90 Unspecified osteoarthritis, unspecified site; J01.90 Acute sinusitis, unspecified; E78.5 Hyperlipidemia, unspecified; E66.9 Obesity, unspecified; Z68.34 Body mass index [BMI] 34.0-34.9, adult; E83.42 Hypomagnesemia; F32.9 Major depressive disorder, single episode, unspecified; N32.81 Overactive bladder; I25.10 Atherosclerotic heart disease of native coronary artery without angina pectoris; Z82.49 Family history of ischemic heart disease and other diseases of the circulatory system
CPT/HCPCS: 36415; 71045; 71046; 71275; 80048; 80053; 82550; 82553; 83690; 83735; 83880; 84165; 84484; 85025; 85379; 86038; 86225; 86256; 87040; 87070; 87205; 87389; 87633; 87798; 93005; 94640; 96361; 96365; 96366; A4216; G8978-GP-CJ; G8979-GP-CJ; G8980-GP-CJ; G8987-GO-CI; G8988-GO-CI; G8989-GO-CI; J0696; J1650; J1956; J3475; J7050; J7506; J7620

== ENCOUNTER 2017-11-06 08:13 | Outpatient (CLI) | payer MEDICARE, MEDICAID | END 2017-11-06 08:14 | disposition home or self-care (01) | LOC: RAD 08:13 | PROVIDERS: ATTEND Internal Medicine | DX: J20.2 Acute bronchitis due to streptococcus (principal); R06.00 Dyspnea, unspecified | CPT/HCPCS: 71046 ==

== ENCOUNTER 2017-12-11 10:37 | Outpatient (CLI) | payer MEDICARE, MEDICAID ==
--- NOTE | 2017-12-16 11:20 | RAD ---
MODIFIED BARIUM SWALLOW: History: Dysphagia, unspecific. Gastroesophageal reflux disease without esophagitis. Comparison: None. FINDINGS: In the presence of speech pathologist, the patient was administered puree, nectar thick, thin liquids , soft and regular texture consistencies. Barium tablet was also administered. IMPRESSION: Penetration. Please refer to speech pathology report for recommendations. POS: [facility]
== END 2017-12-11 10:38 | disposition home or self-care (01) ==
PROVIDERS: ATTEND Internal Medicine
DX: R13.10 Dysphagia, unspecified (principal)
CPT/HCPCS: 74230; G8996-GN-CJ; G8997-GN-CI; G8998-GN-CJ

== ENCOUNTER 2017-12-17 05:43 | Day surgery (SDC) | payer MEDICARE, MEDICAID ==
[2017-12-16 12:40] VITALS: BMI 34.3
--- NOTE | 2017-12-17 10:50 | OP ---
DATE OF PROCEDURE: 12/17/2017 PROCEDURE: Esophagogastroduodenoscopy (diagnostic). INDICATION FOR PROCEDURE: Dysphagia, gastroesophageal reflux disease. DESCRIPTION OF PROCEDURE: After the risks and benefits of the procedure were explained to the patien t including risks of bleeding, infection, perforation, reactions to anesthesia, aspiration and/or sophy n, informed consent was obtained. The patient was then taken to the endoscopy suite where deep sedat ion was administered via propofol and anesthesia support. Once adequate sedation was achieved, the s tandard gastroscope was introduced into the mouth with intubation of the esophagus, stomach pouch, an d both efferent and afferent limbs of the small intestine with the findings listed below. Patient to lerated the procedure well with no immediate perioperative complications. FINDINGS: 1. Esophagus: Normal appearing mucosa was seen in both the proximal and mid esophagus; however, in the distal esophagus at the GE junction. One linear erosion was seen extending proximally from the G E junction itself, measuring approximately 5 mm in size. It was associated with mild increased eryth camille, but no overt ulceration. There was no evidence of mass lesions or active/recent bleeding in thi s area as well. There was also no evidence of stricture or stenosis at the GE junction with easy pas shantel of the standard gastroscope through the lower esophageal sphincter and into the stomach. STOMACH: The gastric pouch was easily intubated with surgical change consistent with a [id number] gas tric bypass seen. Normal mucosa was seen in the gastric cardia, fundus and remnant of the body. The gastrojejunal anastomosis was evaluated with mild increased erythema at the anastomosis itself, but there was no evidence of erosions, ulcerations, or anastomosis breakdown. There was also no evidence of stricture at the anastomosis with easy passage of the scope through the anastomosis. No abnormal ities were seen on gastric retroflexion. SMALL BOWEL: Both the afferent and efferent limbs were intubated with normal appearing villous mucos a seen in both regions, although the efferent limb was a blind pouch coming off of the gastrojejunal anastomosis. There was no evidence of erosions, ulcerations, mass lesions stricture/stenoses or acti ve/recent bleeding seen in this region. IMPRESSION: 1. LA grade A reflux mediated erosive esophagitis. 2. Minimal increased mucosal erythema at the gastrojejunal anastomosis. 3. No evidence of stricture or stenoses was seen in either the stomach or within the esophagus contr ibuting to dysphagia. RECOMMENDATIONS: 1. We will follow up on the modified barium swallow for further evaluation of her dysphagia. 2. We would maintain standard acid reflux precautions given the evidence of reflux esophagitis on ex amination today. 3. We will continue PPI daily. 4. Follow up in the GI clinic in 3 weeks for further evaluation.
[2017-12-17] MEDS ORDERED: Lidocaine 1% PF 5 ML VIAL ONE (14:19)
[2017-12-17] MEDS ORDERED: PROPOFOL 200 MG/20 ML VIAL ONE (14:19)
== END 2017-12-17 10:15 | disposition home or self-care (01) ==
LOC: SDC 05:43
PROVIDERS: ATTEND Internal Medicine
PROC: 0DJ08ZZ Inspection of Upper Intestinal Tract, Via Natural or Artificial Opening Endoscopic (ICD-10-PCS; principal; 2017-12-17)
DX: K21.0 Gastro-esophageal reflux disease with esophagitis (principal); K25.9 Gastric ulcer, unspecified as acute or chronic, without hemorrhage or perforation; K59.00 Constipation, unspecified; G47.30 Sleep apnea, unspecified; I10 Essential (primary) hypertension; F41.9 Anxiety disorder, unspecified; M19.90 Unspecified osteoarthritis, unspecified site; Z79.82 Long term (current) use of aspirin; Z79.1 Long term (current) use of non-steroidal anti-inflammatories (NSAID); Z79.899 Other long term (current) drug therapy; Z80.0 Family history of malignant neoplasm of digestive organs; Z98.84 Bariatric surgery status
CPT/HCPCS: J2001; J2704

== ENCOUNTER 2018-01-16 08:49 | Outpatient (CLI) | payer MEDICARE, MEDICAID ==
--- NOTE | 2018-01-16 11:25 | RAD ---
TWO VIEWS CHEST: Date: 01-16-18 Provided Clinical History: Dyspnea. FINDINGS: Comparison 11-06-17. Cardiac and mediastinal silhouette is unchanged in appearance. No focal consolidation, pleural fluid or pneumothorax apparent. Numerous surgical clips overlie the upper abdomen. IMPRESSION: No evidence for an acute cardiopulmonary process. POS: [facility]
== END 2018-01-16 08:50 | disposition home or self-care (01) ==
LOC: RAD 08:49
PROVIDERS: ATTEND Internal Medicine
DX: R06.00 Dyspnea, unspecified (principal)
CPT/HCPCS: 71046

== ENCOUNTER 2018-02-20 07:42 | Outpatient (CLI) | payer MEDICARE, MEDICAID ==
--- NOTE | 2018-02-20 08:34 | CT ---
CT ABDOMEN AND PELVIS WITH CONTRAST: Date: 02/20/18 COMPARISON: 11/04/15. HISTORY: Abdominal pain for years. Hernia repair x6. TECHNIQUE: Multiple contiguous axial images were obtained in a CT of the abdomen and pelvis with contrast. PO co ntrast was administered. Coronal reformats were performed. FINDINGS: The patient is status post cholecystectomy. Multiple surgical clips are seen in the upper abdomen. Th e liver, kidneys, adrenal glands, and pancreas are unremarkable. Calcifications in the spleen are fro m prior granulomatous disease. Surgical clips in the pelvis likely represent tubal ligation clips. The large and small bowel are unr emarkable. No abdominal or pelvic lymphadenopathy are seen. Atherosclerotic calcifications are seen i n the aorta. Degenerative changes are seen in the spine. Abdominal wall soft tissues are unremarkable. There is no evidence of inguinal or abdominal wall hernia. Atelectasis is seen in the right lung base. IMPRESSION: No evidence of acute intra-abdominal/pelvic abnormality. POS: [facility]
[2018-02-20] MEDS ORDERED: Iopamidol 370 76% 100 ML VIAL ONE (13:14)
== END 2018-02-20 07:43 | disposition home or self-care (01) ==
LOC: CT 07:42
PROVIDERS: ATTEND Surgery
DX: R10.9 Unspecified abdominal pain (principal)
CPT/HCPCS: 74177; 82565